=== PATIENT | male | born 1975 | race Native Hawaiian/Other Pacific Islander ===

== ENCOUNTER 2017-11-30 17:37 | Inpatient (IN) | payer MEDICAID, OTHER ==
[2017-11-30 17:44] VITALS: O2SAT 97
--- NOTE | 2017-11-30 17:47 | ED PDOC ---
Arrival/HPI - General Chief Complaint: Psychiatric Evaluation Time Seen by Provider: 11/30/17 17:44 Historian: Patient, Other (Transfer sheets) - History of Present Illness Associated Symptoms (Text): 11/30/17 17:45 Patient reports that his was cheating on him and he became depressed and told someone that he wanted to kill himself. He was seen at another hospital and medically cleared. Transfer arrangements were made for the psychiatric floor. Patient is awake alert cooperative and aware that he will be admitted to the psychiatric floor and he is agreeable. Therefore review of systems and full examination are unnecessary as he has already been medically cleared at another facility. Past Medical History - Cardiac Hx Hypertension: Yes - Pulmonary Hx Asthma: Yes - Endocrine/Metabolic Hx Diabetes Mellitus Type 2: Yes - Psychiatric Hx Depression: Yes Hx Substance Use: Yes (Marijuana) Family/Social History Family/Social History: Unknown Family HX Smoking Status: Never Smoked Hx Alcohol Use: No Hx Substance Use: Yes (Marijuana) Allergies/Home Meds Allergies/Adverse Reactions: Allergies No Known Allergies Allergy (Verified 11/30/17 17:44) Home Medications: Home Meds Medication Instructions Recorded Confirmed FLUoxetine [Prozac] 20 mg PO DAILY 11/30/17 11/30/17 RX: glyBURIDE [Micronase] 5 mg PO DAILY 11/30/17 11/30/17 RX: metFORMIN [glucOPHAGE] 500 mg PO BID 11/30/17 11/30/17 Physical Exam Vital Signs Temp Pulse Resp BP Pulse Ox 11/30/17 17:38 98.4 F 63 18 135/87 97 Temperature: Afebrile Blood Pressure: Normal Pulse: Regular Respiratory Rate: Normal Appearance: Positive for: Well-Appearing, Non-Toxic, Comfortable Pain Distress: None Mental Status: Positive for: Alert and Oriented X 3 Disposition/Present on Arrival - Present on Arrival Any Indicators Present on Arrival: No History of DVT/PE: No History of Uncontrolled Diabetes: No Urinary Catheter: No History of Decub. Ulcer: No History Surgical Site Infection Following: None - Disposition Have Diagnosis and Disposition been Completed?: Yes Diagnosis: Depression, Suicidal ideation Disposition: HOSPITALIZED Disposition Time: 17:46 Patient Plan: Admission Condition: GOOD Forms: Q-go (Persian)
[2017-11-30] MEDS ORDERED: Alum-Mag Hydrox-Simethicone Susp (30 mL) PO PRN (21:36)
[2017-11-30] MEDS ORDERED: Magnesium Hydroxide Susp 30 ml UD PO PRN (21:36)
--- NOTE | 2017-12-01 04:32 | PCM.BM ---
<Ken Abrams - Last Filed: 12/01/17 04:29> Treatment Plan Problems - Problems identified on initial assessmt Hopelessness Date Initiated: 11/30/17 Time Initiated: 22:45 Assessment reference: NA Status: Active Poor coping mechanism Date Initiated: 11/30/17 Time Initiated: 23:10 Assessment reference: NA Status: Active Anxiety Date Initiated: 11/30/17 Time Initiated: 22:45 Assessment reference: NA Status: Active Treatment assets and liabiliti Patient Assests: ADL independent, strong kari Patient Liabilities: financial problems, poor support system - Milieu Protocol Maintain good personal hygiene: daily Encourage regular showers, daily Remind patient to perform daily oral care, daily Assist patient to perform ADL's Maintain personal safety: daily Educate patient to report safety concerns to staff, daily Monitor environment for contraband/sharps Medication safety: Monitor for expected outcome, potential side effects: daily, Assess barriers to learning: daily, Assess readiness for medication education: daily Family Contact Family involvement: Patient does not wish Family/SO involvement - Goals for Treatment Patient goals for treatment: I just want to rest my head Discharge/Continuing Care - Education Needs Education Needs: Patient Medication, Patient Diagnosis/Disease Process, Patient Coping Skills - Discharge Discharge Criteria: Normal sleep pattern <Nita Sanchez - Last Filed: 12/01/17 10:52> - Diagnosis (1) Depression Status: Acute Interventions: 12/01/17 10:52 group, milieu and supportive tx * restart Prozac at 20 mg po daily, titrate as tolerated * Ativan 0.5 mg AMHS for anxiety * Sonata 10 mg HS prn: insomnia * Neurontin restarted at 800 mg HS ([facility] records indicate patient was being prescribed this medication) <Yissel Stevens - Last Filed: 12/02/17 16:01> Family Contact Family involvement: Famliy/SO not involved
[2017-12-01 08:40] LABS: HDL CHOLESTEROL 31 mg/dL (29-60)
[2017-12-01] MEDS: Oxymetazoline 0.05% Nasal Spray (30 ml) NS PRN ×2 (08:46→15:59)
[2017-12-01 08:51] LABS: LDL CHOLESTEROL 75 mg/dL (0-129)
[2017-12-01] MEDS: FLUoxetine Elix 20 MG/5 ML PO SCH (10:14)
--- NOTE | 2017-12-01 10:52 | PCM.PSYCH ---
Initial Psychiatric Evaluation - Initial Psychiatric Evaluation Type of Admission: Voluntary Legal Status: Capacity History of Present Illness and Precipitating Events: Patient is a 42 yo male with a history of depression and anxiety, no prior psychiatric admissions, no history of SA, compliant with Prozac prescribed by his primary care doctor who was transferred from [facility] at [place] after being sent to their ER by his primary care doctor for expressing suicidal thoughts during their appointment on 11/29/17. Patient has a long history of depression which has been treated mainly by his primary care physicians. He has been taking Prozac since 2011. This medication hasn't been as beneficial in recent months and these symptoms of depression worsened considerably after patient learned that his has been cheating on him for the past month. Patient found out about her affair approximately 1-2 weeks ago. During this time he tripled his dose of Prozac which also worsened his anxiety. Sleep has been very poor and patient admits to having thoughts of never waking up from sleep. He denies that he was ever actively suicidal. Patient has multiple stressors including financial, work and family. Learning about his 's affair was very painful for him and even more painful, she doesn't appear remorseful or want a reconciliation. Their future is still unclear and apparently his family do not know that patient is hospitalized. Psychiatric history No prior admissions. No history of SA. Patient has been prescribed Prozac since 2011 by primary care doctors, patient is unsure of his dose but tripled it in the week prior to admission in order to feel better (it didn't work). Prior to Prozac, patient was prescribed zoloft for many years. Social history Born and raised in [place]. x6 years. Resides with his , 14 yo daughter (from a previous relationship) and 25 yo stepson. Patient also has a 19 yo daughter who doesn't reside with him. 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 He denies any drug or alcohol issues but does smoke MJA multiple times a week (per [facility] report-patient denied any drug use during our interview). Patient denies tobacco use. Current Medications: Active Medications Generic Name Dose Route Start Last Admin Trade Name Freq PRN Reason Stop Dose Admin Acetaminophen 650 mg 11/30/17 21:36 Tylenol 325mg Tab PO Q6H PRN Pain, Mild (1-3) Al Hydrox/Mg Hydrox/Simethicone 30 ml 11/30/17 21:36 Maalox Plus 30 Ml PO DAILY PRN Dyspepsia Fluoxetine HCl 20 mg 12/01/17 08:00 Prozac PO DAILY CÉSAR Ibuprofen 800 mg 11/30/17 21:43 11/30/17 21:56 Motrin Tab PO 800 mg Q8 PRN Administration Pain, severe (8-10) Lorazepam 0.5 mg 11/30/17 22:00 11/30/17 21:56 Ativan PO 0.5 mg AMHS CÉSAR Administration Protocol Magnesium Hydroxide 30 ml 11/30/17 21:36 Milk Of Magnesia PO DAILY PRN Constipation Oxymetazoline HCl 0 ml 11/30/17 22:00 Afrin 0.05% NS Q12H PRN Nasal congestion Zaleplon 10 mg 11/30/17 21:37 11/30/17 21:56 Sonata PO 10 mg HS PRN Administration Insomnia Past Psychiatric History - Past Psychiatric History Pertinent Medical Hx (Current Medical&Sleep Prob, Allergies): Allergies Allergy/AdvReac Type Severity Reaction Status Date / Time No Known Allergies Allergy Verified 12/01/17 00:49 FLUoxetine [Prozac] 20 mg PO DAILY 11/30/17 glyBURIDE [Micronase] 5 mg PO DAILY 11/30/17 metFORMIN [glucOPHAGE] 500 mg PO BID 11/30/17 Mental Status Examination - Personal Presentation Personal Presentation: Looks stated age - Affect Affect: Constricted - Motor Activity Motor Activity: Calm - Reliability in Providing Information Reliability in Providing Information: Good - Speech Speech: Organized - Mood Mood: Depressed - Formal Thought Process Formal Thought Process: No Impairment - Obsessions/Compulsions Obsessions: No Compulsions: No - Cognitive Functions Orientation: Person, Place, Situation Sensorium: Alert Attention/Concentration: Attentive Estimate of Intelligence: Average Judgement: Intact, as evidence by: Good judgement Memory: Recent intact, as evidence by: Ability to recall events of the day - Risk Risk: Suicidal DSM 5 DX - DSM 5 DSM 5 Diagnosis: Major Depression, Severe Adjustment disorder with mixed depression and anxiety MJA Abuse - Recommended/Plan of Treatment Treatment Recommendations and Plan of Treatment: * group, milieu and supportive tx * Of note: patient doesn't want his family to know about his hospitalization at this time. * restart Prozac at 20 mg po daily, titrate as tolerated * Ativan 0.5 mg AMHS for anxiety * Sonata 10 mg HS prn: insomnia * Neurontin restarted at 800 mg HS ([facility] records indicate patient was being prescribed this medication) * Vitals reviewed and noted below: Selected Entries 12/01/17 07:27 Temperature 97.8 F Pulse Rate 53 L Respiratory 20 Rate Blood Pressure 122/80 * 11/29/17 [facility] labs summarized below: * WBC 12.5H, Hgb/Hct 12.9L/39.3L * Protein 9.3H, Globulin 5.8H * UDS is negative * CXR: no evidence of active chest disease * New floor labs noted below: Laboratory Results - last 24 hr 11/30/17 12/01/17 12/01/17 17:54 07:00 07:00 POC Glucose (mg/dL) 113 H Fasting Glucose 110 Triglycerides Cholesterol LDL Cholesterol Direct HDL Cholesterol TSH 3rd Generation 1.39 12/01/17 07:00 POC Glucose (mg/dL) Fasting Glucose Triglycerides 168 H Cholesterol 146 LDL Cholesterol Direct 75 HDL Cholesterol 31 TSH 3rd Generation - Smoking Cessation Smoking Cessation Initiated: No
[2017-12-01] MEDS ORDERED: Hydrocortisone 2.5% Rectal Cream(30 gm) PR PRN (10:55)
[2017-12-01 11:11] LABS: BLOOD UREA NITROGEN 7 mg/dL (7-21); CALCIUM 9.4 mg/dL (8.4-10.5); GFR NON-AFRICAN AMERICAN > 60
[2017-12-01 11:17] LABS: BASO # 0.01 K/mm3 (0.0-2.0); BASO % 0.1 % (0.0-3.0); EOS # 0.1 (0.0-0.7); EOS % 0.5 % (1.5-5.0); GRAN # 4.83 (1.4-6.5); GRAN % 49.7 % (50.0-68.0); HEMOGLOBIN 13.7 g/dL (14.0-18.0); LYMPH # 4.4 (1.2-3.4); LYMPH % 44.8 % (22.0-35.0); MEAN CELL VOLUME 83.4 fl (80.0-105.0); MEAN CORPUSCULAR HEMOGLOBIN 28.5 pg (25.0-35.0); MEAN CORPUSCULAR HGB CONC 34.2 g/dl (31.0-37.0); MEAN PLATELET VOLUME 10.2 fl (7.0-11.0); MONO # 0.5 (0.1-0.6); MONO % 4.9 % (1.0-6.0); RBC 4.81 10^6/uL (3.5-6.1); WHITE BLOOD COUNT 9.7 10^3/ul (4.5-11.0)
--- NOTE | 2017-12-01 16:03 | CP.PCM.CON ---
<Blas Wells - Last Filed: 12/01/17 15:51> History of Present Illness - History of Present Illness History of Present Illness: Blas Wells DO PGY1, History and Physical for Dr Danielson 42 yo male with a PMH DM2, cerebral aneurysm, HLD, GERD, hemorrhoids, anxiety and depression who was transferred from [facility] at [place] after being sent to their ER by his primary care doctor for expressing suicidal thoughts during their appointment on 11/29/17. Patient admits not to have SI/HI. No prior hospitalization due to depression or any psych illness. Patient states that he was only anxious when he told his doctor that he wish to be . Patient admits to palpitations and sleep disturbance due to anxiety and stress in his family life. He reports to having cerebral aneurysm but can not see neurosurgeon due to insurance is not accepted by doctors in [place]. Patient has fresh blood beeding and pain due to his hemorrhoids for which he takes prep-H. Has chronic neck pain due to arthritis. Patient denied CP, SOB, cough, change in bowel movement, MACEDO, dizziness, urinary symptoms PMH: chronic neck pain, DM2, gastritis, cerebral aneurysm, anxiety and depression, hemorrhoids PSH: none FH: Father had CVA, VT, alcohol abuse, SH: denies smoking. uses amrijuana use, socially drinks alcohol. Lives with and 2 stepsons Meds: fluoxetine 20, glyburide 5, metformin 500 bid, ibuprofen 800, gabapentin 800 tid, prevacid, anusol Allergies: NKDA Past Patient History - Past Social History Smoking Status: Never Smoked - CARDIAC Hx Hypertension: Yes - PULMONARY Hx Asthma: Yes - NEUROLOGICAL Hx Neurological Disorder: Yes Hx Migraine: Yes Other/Comment: Aneurysm H/O (Untreated) - HEENT Hx HEENT Problems: Yes Hx Sinusitis: Yes - ENDOCRINE/METABOLIC Hx Diabetes Mellitus Type 2: Yes - INTEGUMENTARY Hx Squamous Cell: No - MUSCULOSKELETAL/RHEUMATOLOGICAL Hx Back Pain: Yes - PSYCHIATRIC Hx Anxiety: Yes Hx Depression: Yes Hx Emotional Abuse: Yes Hx Substance Use: No Meds Allergies/Adverse Reactions: Allergies Allergy/AdvReac Type Severity Reaction Status Date / Time No Known Allergies Allergy Verified 12/01/17 00:49 - Medications Medications: Current Medications Acetaminophen (Tylenol 325mg Tab) 650 mg PO Q6H PRN PRN Reason: Pain, Mild (1-3) Al Hydrox/Mg Hydrox/Simethicone (Maalox Plus 30 Ml) 30 ml PO DAILY PRN PRN Reason: Dyspepsia Fluoxetine HCl (Prozac) 20 mg PO DAILY CÉSAR Last Admin: 12/01/17 10:14 Dose: 20 liq Gabapentin (Neurontin) 800 mg PO HS [facility]; Protocol Glyburide (Micronase) 5 mg PO 0800 CÉSAR Hydrocortisone (Anusol-Hc) 0 gm WI BID PRN PRN Reason: Hemorrhoids Ibuprofen (Motrin Tab) 600 mg PO Q8 PRN PRN Reason: Pain, severe (8-10) Lorazepam (Ativan) 0.5 mg PO AMHS [facility]; Protocol Last Admin: 12/01/17 10:14 Dose: 0.5 mg Magnesium Hydroxide (Milk Of Magnesia) 30 ml PO DAILY PRN PRN Reason: Constipation Metformin HCl (Glucophage) 500 mg PO BID CÉSAR Oxymetazoline HCl (Afrin 0.05%) 0 ml NS Q12H PRN PRN Reason: Nasal congestion Last Admin: 12/01/17 08:46 Dose: 2 spr Pantoprazole Sodium (Protonix Ec Tab) 20 mg PO 0600 CÉSAR Sodium Chloride (Gamerco Nasal [place]) 0 ml NS Q4H PRN PRN Reason: Nasal congestion Zaleplon (Sonata) 10 mg PO HS PRN PRN Reason: Insomnia Last Admin: 11/30/17 21:56 Dose: 10 mg Physical Exam - Constitutional Appears: Well, No Acute Distress - Head Exam Head Exam: ATRAUMATIC, NORMOCEPHALIC - Eye Exam Eye Exam: EOMI, Normal appearance Pupil Exam: NORMAL ACCOMODATION - ENT Exam ENT Exam: Mucous Membranes Moist, Normal Exam, Normal Oropharynx - Neck Exam Neck exam: Positive for: Full Rom, Normal Inspection - Respiratory Exam Respiratory Exam: Clear to Auscultation Bilateral, NORMAL BREATHING PATTERN. absent: Rales, Rhonchi, Wheezes - Cardiovascular Exam Cardiovascular Exam: REGULAR RHYTHM, +S1, +S2 - GI/Abdominal Exam GI & Abdominal Exam: Normal Bowel Sounds, Soft. absent: Tenderness - Back Exam Back exam: FULL ROM, NORMAL INSPECTION - Neurological Exam Neurological exam: Alert, CN II-XII Intact, Normal Gait, Oriented x3, Reflexes Normal - Psychiatric Exam Psychiatric exam: Anxious, Depressed - Skin Skin Exam: Dry, Intact, Normal Color, Warm Results - Vital Signs Recent Vital Signs: Last Vital Signs Temp 97.8 F 12/01/17 07:27 Pulse 53 L 12/01/17 07:27 Resp 20 12/01/17 07:27 BP 122/80 12/01/17 07:27 Pulse Ox 97 11/30/17 18:15 - Labs Result Diagrams: 12/01/17 11:00 12/01/17 11:00 Labs: Laboratory Results - last 24 hr 11/30/17 12/01/17 12/01/17 17:54 07:00 07:00 WBC RBC Hgb Hct MCV MCH MCHC RDW Plt Count MPV Gran % Lymph % (Auto) [place] % (Auto) Eos % (Auto) Baso % (Auto) Gran # Lymph # (Auto) [place] # (Auto) Eos # (Auto) Baso # (Auto) Sodium Potassium Chloride Carbon Dioxide Anion Gap BUN Creatinine Est GFR ( Amer) Est GFR (Non-Af Amer) POC Glucose (mg/dL) 113 H Random Glucose Fasting Glucose 110 Calcium Triglycerides Cholesterol LDL Cholesterol Direct HDL Cholesterol TSH 3rd Generation 1.39 12/01/17 12/01/17 12/01/17 07:00 11:00 11:00 WBC 9.7 RBC 4.81 Hgb 13.7 L Hct 40.1 L MCV 83.4 MCH 28.5 MCHC 34.2 RDW 15.0 H Plt Count 330 MPV 10.2 Gran % 49.7 L Lymph % (Auto) 44.8 H [place] % (Auto) 4.9 Eos % (Auto) 0.5 L Baso % (Auto) 0.1 Gran # 4.83 Lymph # (Auto) 4.4 H [place] # (Auto) 0.5 Eos # (Auto) 0.1 Baso # (Auto) 0.01 Sodium 139 Potassium 4.3 Chloride 104 Carbon Dioxide 24 Anion Gap 15 BUN 7 Creatinine 0.8 Est GFR ( Amer) > 60 Est GFR (Non-Af Amer) > 60 POC Glucose (mg/dL) Random Glucose 108 Fasting Glucose Calcium 9.4 Triglycerides 168 H Cholesterol 146 LDL Cholesterol Direct 75 HDL Cholesterol 31 TSH 3rd Generation Assessment & Plan - Assessment and Plan (Free Text) Assessment: 42 yo male with a PMH DM2, cerebral aneurysm, HLD, GERD, hemorrhoids, anxiety and depression who was transferred from [facility] after expressed thoughts of suicide at his PMD office. His is admitted to behavior unit, consulted for medical management Plan: DM2: continue home med metformin 500 bid continue home med glyperide 5 mg/day Hemorroids: started anusol GERD: started pantoprazole Chronic neck pain started lidoderm patch Anxiety/ depression as per psych management Case reviewed and plan discussed with Dr Danielson <Nina Danielson R - Last Filed: 12/03/17 18:48> Meds - Medications Medications: Current Medications Acetaminophen (Tylenol 325mg Tab) 650 mg PO Q6H PRN PRN Reason: Pain, Mild (1-3) Al Hydrox/Mg Hydrox/Simethicone (Maalox Plus 30 Ml) 30 ml PO DAILY PRN PRN Reason: Dyspepsia Cyclobenzaprine HCl (Flexeril) 5 mg PO TID CÉSAR Last Admin: 12/03/17 17:16 Dose: 5 mg Dextrose (Dextrose 50% Inj) 0 ml IV STAT PRN; Protocol PRN Reason: Hypoglycemia Protocol Gabapentin (Neurontin) 800 mg PO HS CÉSAR; Protocol Last Admin: 12/02/17 21:29 Dose: 800 mg Hydrocortisone (Anusol-Hc) 0 gm WI BID PRN PRN Reason: Hemorrhoids Dextrose (Dextrose 5% In Water 1000 Ml) 1,000 mls @ 0 mls/hr IV .Q0M PRN; Protocol PRN Reason: Hypoglycemia Protocol Insulin Human Regular (Humulin R Low) 0 units SC ACHS CÉSAR; Protocol Last Admin: 12/03/17 17:16 Dose: Not Given Lidocaine (Lidoderm) 1 ea TD DAILY CÉSAR Last Admin: 12/03/17 10:25 Dose: 1 ea Lorazepam (Ativan) 0.5 mg PO AMHS CÉSAR; Protocol Last Admin: 12/03/17 10:26 Dose: 0.5 mg Lorazepam (Ativan) 0.5 mg PO Q6H PRN; Protocol PRN Reason: Anxiety Magnesium Hydroxide (Milk Of Magnesia) 30 ml PO DAILY PRN PRN Reason: Constipation Oxymetazoline HCl (Afrin 0.05%) 0 ml NS Q12H PRN PRN Reason: Nasal congestion Last Admin: 12/03/17 10:34 Dose: 2 spr Pantoprazole Sodium (Protonix Ec Tab) 20 mg PO 0600 CÉSAR Last Admin: 10/02/18 06:53 Dose: 20 mg Sodium Chloride (Gamerco Nasal [place]) 0 ml NS Q4H PRN PRN Reason: Nasal congestion Venlafaxine HCl (Effexor) 75 mg PO DAILY CÉSAR Zaleplon (Sonata) 10 mg PO HS PRN PRN Reason: Insomnia Last Admin: 12/02/17 21:35 Dose: 10 mg Results - Vital Signs Recent Vital Signs: Last Vital Signs Temp 97.9 F 12/03/17 07:23 Pulse 59 L 12/03/17 16:30 Resp 18 12/03/17 07:23 BP 96/61 L 12/03/17 16:30 Pulse Ox 97 11/30/17 18:15 - Labs Result Diagrams: 12/03/17 10:45 12/03/17 10:45 Labs: Laboratory Results - last 24 hr 12/02/17 12/02/17 12/03/17 16:03 21:21 07:24 WBC RBC Hgb Hct MCV MCH MCHC RDW Plt Count MPV Gran % Lymph % (Auto) [place] % (Auto) Eos % (Auto) Baso % (Auto) Gran # Lymph # (Auto) [place] # (Auto) Eos # (Auto) Baso # (Auto) Sodium Potassium Chloride Carbon Dioxide Anion Gap BUN Creatinine Est GFR ( Amer) Est GFR (Non-Af Amer) POC Glucose (mg/dL) 61 L 97 86 Random Glucose Hemoglobin A1c Calcium Phosphorus Magnesium Total Bilirubin AST ALT Alkaline Phosphatase Total Protein Albumin Globulin Albumin/Globulin Ratio 12/03/17 12/03/17 12/03/17 10:45 10:45 10:45 WBC 12.2 H D RBC 4.86 Hgb 13.7 L Hct 40.4 L MCV 83.1 MCH 28.2 MCHC 33.9 RDW 15.1 H Plt Count 321 MPV 9.4 Gran % 56.2 Lymph % (Auto) 36.1 H [place] % (Auto) 7.3 H Eos % (Auto) 0.3 L Baso % (Auto) 0.1 Gran # 6.83 H Lymph # (Auto) 4.4 H [place] # (Auto) 0.9 H Eos # (Auto) 0.0 Baso # (Auto) 0.01 Sodium 140 Potassium 4.0 Chloride 104 Carbon Dioxide 22 Anion Gap 18 BUN 11 Creatinine 0.9 Est GFR ( Amer) > 60 Est GFR (Non-Af Amer) > 60 POC Glucose (mg/dL) Random Glucose 113 H Hemoglobin A1c 6.2 Calcium 9.9 Phosphorus 3.4 Magnesium 1.7 Total Bilirubin 0.4 AST 32 ALT 45 Alkaline Phosphatase 80 Total Protein 9.5 H Albumin 4.6 Globulin 4.9 Albumin/Globulin Ratio 0.9 L 12/03/17 11:57 WBC RBC Hgb Hct MCV MCH MCHC RDW Plt Count MPV Gran % Lymph % (Auto) [place] % (Auto) Eos % (Auto) Baso % (Auto) Gran # Lymph # (Auto) [place] # (Auto) Eos # (Auto) Baso # (Auto) Sodium Potassium Chloride Carbon Dioxide Anion Gap BUN Creatinine Est GFR ( Amer) Est GFR (Non-Af Amer) POC Glucose (mg/dL) 112 H Random Glucose Hemoglobin A1c Calcium Phosphorus Magnesium Total Bilirubin AST ALT Alkaline Phosphatase Total Protein Albumin Globulin Albumin/Globulin Ratio Attending/Attestation - Attestation I have personally seen and examined this patient.: Yes I have fully participated in the care of the patient.: Yes I have reviewed all pertinent clinical information: Yes Notes (Text): Patient seen and examined by me at 11:10AM with resident 12/01/17. Case including HPI, physical exam, andassessment and plan discussed with resident. Agree with above with following additions/corrections. Patient is 42 year old male with past medical history significant for cerebral aneurysm per patient, hyperlipidemia, GERD, DM2, hemorrhoids, and anxiety and depression who was admitted to the psychiatric unit for suicidal ideations. We are consulted for medical management. Patient states he is feeling ok. States he is having neck pain which is chronic. States he has a history of cerebral aneurysm as well. He states was seeing a neurologist who told him he was a liability and he has not followed with anyone else. He states no one takes his insurance. He states he has tried lidocaine patches for his neck in the past which did help. He states his insurance company does not cover this medication. He denies any chest pain or shortness of breath. No nausea, vomiting, or abdominal pain. No headaches or dizziness. No palpitations. No fevers or chills. No dysuria. No diarrhea or constipation. 12 point review of systems reviewed by me. See above HPI, all other systems are negative. Physical exam: General: Awake and alert sitting up in bed in no acute distress HEENT: Normocephalic atraumatic. Pupils equal reactive. No scleral icterus. Oropharynx is pink and moist. No pharyngeal erythema or exudate appreciated. Neck is supple. Hearing grossly intact. Ears and nose externally unremarkable. Cardiovascular: Normal rhythm. Normal S1, S2. No murmurs, rubs, or gallops appreciated Pulmonary: Normal respiratory effort. No rhonchi, rales, or wheezing appreciated Gastrointestinal: Soft. Nondistended. Nontender. Positive bowel sounds all 4 quadrants, no guarding. Musculoskeletal: Normal range of motion all extremities. No calf tenderness. No edema appreciated. No CVA tenderness. Positive cervical paraspinal muscle tenderness. Central nervous system: AAO 3. Cranial nerves 2-12 grossly intact Dermatologic: Skin warm and dry. Assessment and plan: Patient is 42 year old male with past medical history significant for cerebral aneurysm per patient, hyperlipidemia, GERD, DM2, hemorrhoids, and anxiety and depression who was admitted to the psychiatric unit for suicidal ideations. We are consulted for medical management. 1. DM2. Continue home metformin and glyburide. Monitor accuchecks 2. History of hemorrhoids. Placed on anusol as needed. 3. Hyperlipidemia. Patient is unsure of which medication he takes at home. Will need to check with patients pharmacy. 4. GERD. Placed on Protonix 5. Chronic neck pain. Started on lidocaine patch. Patient advised on follow up with primary care doctor and neurologist for further care 6. ?Cerebral aneurysm. Patient asymptomatic. Patient will need follow up with his primary care doctor and neurologist. This was discussed at length with patient. 7. Anxiety and depression. Care as per primary team. Thank you for allowing us to participate in the care of your patient.
--- NOTE | 2017-12-01 17:11 | CP.PCM.PCO ---
Addendum Addendum: 12/01/17 17:08 In regards to the Lidocaine Transdermal Patch: Please place on patient for 12 hours and then remove the patch after this 12 hour period is complete. Please do not leave the Lidocaine patch on the patient for greater than 12 hours at a time. Please also note that there should be at least 12 hours between patches being placed on the patient. Thank you.
[2017-12-02] MEDS: Pantoprazole 20 mg EC Tab PO SCH (07:22)
[2017-12-02] MEDS: Lidocaine 5% Patch TD SCH (09:34)
[2017-12-02] MEDS: FLUoxetine Elix 20 MG/5 ML PO SCH (09:52)
[2017-12-02] MEDS ORDERED: Dextrose 50% SYRINGE Inj (50 ml) IV PRN (15:51)
[2017-12-02] MEDS ORDERED: Insulin Lispro (humaLOG) LOW Coverage SC SCH (16:30)
--- NOTE | 2017-12-02 16:42 | PCM.PYCHPN ---
Psychiatric Progress Note - Psychiatric Progress Note Patient seen today, length of contact: 30 minutes Patient Chief Complaint: "all of my previous wives cheated on me" Problems Identified/Issues Discussed: Suicide/ homicide prevention, past psychiatric h/o, current psychiatric symptoms, medical problems, risk/benefits and alternatives of medications, medications compliance, coping strategies, substance abuse h/o, relapse prevention, importance of follow up with psychiatrist and therapist, discharge plan. Medical Problems: diabetes mellitus type 2, cerebral aneurysm, hyperlipidemia, GERD, hemorrhoids, see admission note for more detailed information Diagnostic Results: 12/01/17 11:00 12/01/17 11:00 Lab Results 12/02/17 14:40: POC Glucose (mg/dL) 73 12/02/17 12:29: POC Glucose (mg/dL) 68 12/02/17 11:46: POC Glucose (mg/dL) 34 L* 12/02/17 07:35: POC Glucose (mg/dL) 108 12/01/17 21:33: POC Glucose (mg/dL) 128 H 12/01/17 16:21: POC Glucose (mg/dL) 88 12/01/17 11:38: POC Glucose (mg/dL) 105 12/01/17 11:00: Sodium 139, Potassium 4.3, Chloride 104, Carbon Dioxide 24, Anion Gap 15, BUN 7, Creatinine 0.8, Est GFR ( Amer) > 60, Est GFR (Non- Af Amer) > 60, Random Glucose 108, Calcium 9.4 12/01/17 11:00: WBC 9.7, RBC 4.81, Hgb 13.7 L, Hct 40.1 L, MCV 83.4, MCH 28.5, MCHC 34.2, RDW 15.0 H, Plt Count 330, MPV 10.2, Gran % 49.7 L, Lymph % (Auto) 44.8 H, [place] % (Auto) 4.9, Eos % (Auto) 0.5 L, Baso % (Auto) 0.1, Gran # 4.83, Lymph # (Auto) 4.4 H, [place] # (Auto) 0.5, Eos # (Auto) 0.1, Baso # (Auto) 0.01 12/01/17 07:00: Triglycerides 168 H, Cholesterol 146, LDL Cholesterol Direct 75, HDL Cholesterol 31 12/01/17 07:00: TSH 3rd Generation 1.39 12/01/17 07:00: Fasting Glucose 110 12/01/17 07:00: RPR Nonreactive 11/30/17 17:54: POC Glucose (mg/dL) 113 H Vital Signs Temp Pulse Resp BP Pulse Ox 12/02/17 15:49 86 133/88 12/02/17 07:00 97.8 F 62 20 96/62 L 12/02/17 06:50 97.8 F 62 20 96/62 L 12/01/17 16:30 59 L 101/61 12/01/17 07:27 97.8 F 53 L 20 122/80 11/30/17 23:06 19 11/30/17 18:15 98.4 F 63 18 135/87 97 11/30/17 17:38 98.4 F 63 18 135/87 97 11/30/17 17:37 98.4 F 63 18 135/87 97 DSM 5 Symptoms Update: as per Dr. Sanchez's assessment: Patient is a 42 yo male with a history of depression and anxiety, no prior psychiatric admissions, no history of SA, compliant with Prozac prescribed by his primary care doctor who was transferred from [facility] at [place] after being sent to their ER by his primary care doctor for expressing suicidal thoughts during their appointment on 11/29/17. Patient has a long history of depression which has been treated mainly by his primary care physicians. He has been taking Prozac since 2011. This medication hasn't been as beneficial in recent months and these symptoms of depression worsened considerably after patient learned that his has been cheating on him for the past month. Patient found out about her affair approximately 1-2 weeks ago. During this time he tripled his dose of Prozac which also worsened his anxiety. Sleep has been very poor and patient admits to having thoughts of never waking up from sleep. He denies that he was ever actively suicidal. Patient has multiple stressors including financial, work and family. Learning about his 's affair was very painful for him and even more painful, she doesn't appear remorseful or want a reconciliation. Their future is still unclear and apparently his family do not know that patient is hospitalized. Patient was seen at the treatment team meeting, patient presented with acceptable personal hygiene, thought process seems to be circumstantial and overinclusive, pt reported to feel very depressed and "heart broken",pt reported meds help him to sleep. pt started to go to the groups, visible in the unit. pt gave permission to speak to his , as per pt he is opened for family counseling, but doubtful about his willingness to have family therapy. pt was offered to change prozac to Effexor, risk/benefits and alternatives discussed with pt. pt willing to continue the rest of meds. patient was seen by medical team, consult appreciated. Patient denied hearing voices, denied seeing things, denied paranoid ideation, patient does not present to be psychotic. Impression: rule out major depressive disorder Rule out adjustment disorder with depressed and anxious mood Medication Change: Yes (Prozac discontinued, Effexor started) Medical Record Reviewed: Yes Consults ordered or reviewed: atient was seen by medical team, consult appreciated. Mental Status Examination - Cognitive Function Orientation: Person, Place, Situation Memory: Intact Attention: Poor Concentration: Poor Association: WNL Fund of Knowledge: WNL - Mood Mood: Depressed - Affect Affect: Constricted - Formal Thought Process Formal Thought Process: No Impairment - Suicidal Ideation Suicidal Ideation: No - Homicidal Ideation Homicidal Ideation: No Goal/Treatment Plan - Goal/Treatment Plan Need for Continued Stay: Remain at risks for inpatient hospitalization, Severe depression anxiety, Discharge may exacerbated symptoms, Severe functional impairment Progress Toward Problem(s) and Goals/Treatment Plan: Milieu/structure/supportive therapy Medical consult appreciated, see medical team note for more detailed info SW consultation for discharge plan and social issues Med management Prozac was discontinued Effexor started 37.5 mg by mouth daily for depression and anxiety Sonata for insomnia Flexeril was started by medical team [facility] Family involvement Follow up on labs Will monitor closely Pt was educated about risk/benefits and alternatives of medications, coping strategies (safety plan, suicide prevention), relapse prevention, importance of follow up with psychiatrist and therapist, stay away from drugs/alcohol/smoking Estimated Date of D/C: 12/09/17
--- NOTE | 2017-12-02 17:02 | CP.PCM.CON ---
<Nikki Chance - Last Filed: 12/02/17 16:55> History of Present Illness - History of Present Illness History of Present Illness: Nikki Chance, PGY2, Neurology Note for Dr Ortiz: 42 M with PMH DM2, cerebral aneurysm, HLD, GERD, hemorrhoids, anxiety and depression was sent to ER by primary care doctor for suicidal thoughts on Wednesday 11/29 and was admitted to psych for depression and anxiety. Currently denies suicidal ideations, says it was a passive intent after learning his had been cheating on him for past month, but feeling better about the situation today. Admits to chronic headaches and neck pain for past 25 years that radiates to occiput, rates pain as 11/11, smokes marijuana daily for pain. Also prescribed Gabapentin 800mg TID in the past by his neurologist, who he last saw 2 years ago. He states he took the Neurontin sporadically and therefore still had medication that he has been taking at night to help him sleep (800mg HS) along with Unisom. R cerebral aneurysm (2cm) was diagnosed in 2001, last imaging done a few years ago at [facility] in [place] (measured 3cm). He has not had any imaging or follow-up since then due to insurance issues. Also admits to occasio nal dizziness and balance issues, including falls, has hit his head. Denies focal weakness, tremors, nausea/vomiting. 12 point ROS obtained and negative, except as per HPI. PMD: Mike ([place]) Social: Marijuana use daily. Occasional alcohol. Denies tobacco, drug use. Works in [employer]. 2 daughters (19yo, 14yo). PMH: chronic neck pain, DM2, gastritis, cerebral aneurysm, anxiety and depre ssion, hemorrhoids PSH: none FH: Father had CVA, [place], alcohol abuse, SH: denies smoking. uses marijuana use, socially drinks alcohol. Lives with and 2 stepsons Meds: fluoxetine 20, glyburide 5, metformin 500 bid, ibuprofen 800, gabapentin 800 tid, prevacid, anusol Allergies: NKDA Review of Systems - Review of Systems All systems: reviewed and no additional remarkable complaints except Review of Systems: as per HPI Past Patient History - Past Social History Smoking Status: Never Smoked - CARDIAC Hx Hypertension: Yes - PULMONARY Hx Asthma: Yes - NEUROLOGICAL Hx Neurological Disorder: Yes Hx Migraine: Yes Other/Comment: Aneurysm H/O (Untreated) - HEENT Hx HEENT Problems: Yes Hx Sinusitis: Yes - ENDOCRINE/METABOLIC Hx Diabetes Mellitus Type 2: Yes - INTEGUMENTARY Hx Squamous Cell: No - MUSCULOSKELETAL/RHEUMATOLOGICAL Hx Back Pain: Yes - PSYCHIATRIC Hx Anxiety: Yes Hx Depression: Yes Hx Emotional Abuse: Yes Hx Substance Use: No Meds Allergies/Adverse Reactions: Allergies Allergy/AdvReac Type Severity Reaction Status Date / Time No Known Allergies Allergy Verified 12/01/17 00:49 - Medications Medications: Current Medications Acetaminophen (Tylenol 325mg Tab) 650 mg PO Q6H PRN PRN Reason: Pain, Mild (1-3) Al Hydrox/Mg Hydrox/Simethicone (Maalox Plus 30 Ml) 30 ml PO DAILY PRN PRN Reason: Dyspepsia Cyclobenzaprine HCl (Flexeril) 5 mg PO TID CÉSAR Dextrose (Dextrose 50% Inj) 0 ml IV STAT PRN; Protocol PRN Reason: Hypoglycemia Protocol Gabapentin (Neurontin) 800 mg PO HS CÉSAR; Protocol Last Admin: 12/01/17 21:26 Dose: 800 mg Hydrocortisone (Anusol-Hc) 0 gm [place] BID PRN PRN Reason: Hemorrhoids Dextrose (Dextrose 5% In Water 1000 Ml) 1,000 mls @ 0 mls/hr IV .Q0M PRN; Protocol PRN Reason: Hypoglycemia Protocol Ibuprofen (Motrin Tab) 800 mg PO Q8 PRN PRN Reason: Pain, severe (8-10) Insulin Human Lispro (Humalog Low) 0 units SC ACHS CÉSAR; Protocol Lidocaine (Lidoderm) 1 ea TD DAILY CÉSAR Last Admin: 12/02/17 09:34 Dose: 1 ea Lorazepam (Ativan) 0.5 mg PO AMHS CÉSAR; Protocol Last Admin: 12/02/17 09:35 Dose: 0.5 mg Lorazepam (Ativan) 0.5 mg PO Q6H PRN; Protocol PRN Reason: Anxiety Magnesium Hydroxide (Milk Of Magnesia) 30 ml PO DAILY PRN PRN Reason: Constipation Metformin HCl (Glucophage) 500 mg PO BID CÉSAR Last Admin: 12/02/17 09:34 Dose: 500 mg Oxymetazoline HCl (Afrin 0.05%) 0 ml NS Q12H PRN PRN Reason: Nasal congestion Last Admin: 12/01/17 15:59 Dose: 2 spr Pantoprazole Sodium (Protonix Ec Tab) 20 mg PO 0600 CÉSAR Last Admin: 12/02/17 07:22 Dose: 20 mg Sodium Chloride ([place] Nasal [place]) 0 ml NS Q4H PRN PRN Reason: Nasal congestion Venlafaxine HCl (Effexor) 37.5 mg PO DAILY CÉSAR Last Admin: 12/02/17 09:48 Dose: 37.5 mg Zaleplon (Sonata) 10 mg PO HS PRN PRN Reason: Insomnia Last Admin: 12/01/17 21:26 Dose: 10 mg Physical Exam - Constitutional Appears: Non-toxic, No Acute Distress - Head Exam Head Exam: ATRAUMATIC, NORMOCEPHALIC - Eye Exam Eye Exam: EOMI, PERRL. absent: Conjunctival injection, Nystagmus, Scleral icterus Pupil Exam: NORMAL ACCOMODATION, PERRL. absent: Fixed, Irregular, Miosis, Unequal - ENT Exam ENT Exam: Mucous Membranes Moist - Neck Exam Neck exam: Positive for: Full Rom - Respiratory Exam Respiratory Exam: Clear to Auscultation Bilateral, NORMAL BREATHING PATTERN. absent: Accessory Muscle Use, Rales, Rhonchi, Wheezes, Stridor - Cardiovascular Exam Cardiovascular Exam: +S1, +S2. absent: Systolic Murmur - GI/Abdominal Exam GI & Abdominal Exam: Normal Bowel Sounds, Soft. absent: Firm, Guarding, Organomegaly, Rebound, Rigid, Tenderness - Extremities Exam Extremities exam: Positive for: normal inspection. Negative for: calf tenderness, pedal edema - Back Exam Back exam: NORMAL INSPECTION - Neurological Exam Neurological exam: Alert, CN II-XII Intact, Normal Gait, Oriented x3, Reflexes Normal Additional comments: 5/5 muscle strength bilaterally in UE & LE Sensation intact bilaterally No dysmetria. Rapid alternating movements normal +Swaying with eyes closed (positive Romberg) +Steady gait, mildly off-balance - Psychiatric Exam Psychiatric exam: Normal Affect, Normal Mood - Skin Skin Exam: Dry, Normal Color, Warm Results - Vital Signs Recent Vital Signs: Last Vital Signs Temp 97.8 F 12/02/17 07:00 Pulse 86 12/02/17 15:49 Resp 20 12/02/17 07:00 BP 133/88 12/02/17 15:49 Pulse Ox 97 11/30/17 18:15 - Labs Result Diagrams: 12/01/17 11:00 12/01/17 11:00 Labs: Laboratory Results - last 24 hr 12/01/17 12/02/17 12/02/17 21:33 07:35 11:46 POC Glucose (mg/dL) 128 H 108 34 L* 12/02/17 12/02/17 12:29 14:40 POC Glucose (mg/dL) 68 73 Assessment & Plan - Assessment and Plan (Free Text) Assessment: 42 M with PMH of DM2, cerebral aneurysm, HLD, GERD, hemorrhoids, anxiety and depression admitted to psych for depression and anxiety. neurology consulted for history of cerebral aneurysm, chronic headaches and neck pain: Chronic headache and neck pain: - start Flexeril 5 mg PO tid - continue Gabapentin 800mg HS - Lidoderm patch - PT eval Hx of Cerebral Aneurysm: - head MRA - cervical MRI - F/u results Case discussed with Dr Ortiz. <Clay Ortiz - Last Filed: 12/03/17 12:26> Meds - Medications Medications: Current Medications Acetaminophen (Tylenol 325mg Tab) 650 mg PO Q6H PRN PRN Reason: Pain, Mild (1-3) Al Hydrox/Mg Hydrox/Simethicone (Maalox Plus 30 Ml) 30 ml PO DAILY PRN PRN Reason: Dyspepsia Cyclobenzaprine HCl (Flexeril) 5 mg PO TID [facility] Last Admin: 12/03/17 10:26 Dose: 5 mg Dextrose (Dextrose 50% Inj) 0 ml IV STAT PRN; Protocol PRN Reason: Hypoglycemia Protocol Gabapentin (Neurontin) 800 mg PO [facility]; Protocol Last Admin: 12/02/17 21:29 Dose: 800 mg Hydrocortisone (Anusol-Hc) 0 gm [place] BID PRN PRN Reason: Hemorrhoids Dextrose (Dextrose 5% In Water 1000 Ml) 1,000 mls @ 0 mls/hr IV .Q0M PRN; Pro tocol PRN Reason: Hypoglycemia Protocol Ibuprofen (Motrin Tab) 800 mg PO Q8 PRN PRN Reason: Pain, severe (8-10) Last Admin: 12/02/17 21:40 Dose: 800 mg Insulin Human Regular (Humulin R Low) 0 units SC [facility]; Protocol Last Admin: 12/03/17 12:21 Dose: Not Given Lidocaine (Lidoderm) 1 ea TD DAILY CÉSAR Last Admin: 12/03/17 10:25 Dose: 1 ea Lorazepam (Ativan) 0.5 mg PO AMHS CÉSAR; Protocol Last Admin: 12/03/17 10:26 Dose: 0.5 mg Lorazepam (Ativan) 0.5 mg PO Q6H PRN; Protocol PRN Reason: Anxiety Magnesium Hydroxide (Milk Of Magnesia) 30 ml PO DAILY PRN PRN Reason: Constipation Oxymetazoline HCl (Afrin 0.05%) 0 ml NS Q12H PRN PRN Reason: Nasal congestion Last Admin: 12/03/17 10:34 Dose: 2 spr Pantoprazole Sodium (Protonix Ec Tab) 20 mg PO 0600 CÉSAR Last Admin: 12/03/17 06:53 Dose: 20 mg Sodium Chloride ([place] Nasal [place]) 0 ml NS Q4H PRN PRN Reason: Nasal congestion Venlafaxine HCl (Effexor) 37.5 mg PO DAILY CÉSAR Last Admin: 12/03/17 10:26 Dose: 37.5 mg Zaleplon (Sonata) 10 mg PO HS PRN PRN Reason: Insomnia Last Admin: 12/02/17 21:35 Dose: 10 mg Results - Vital Signs Recent Vital Signs: Last Vital Signs Temp 97.9 F 12/03/17 07:23 Pulse 67 12/03/17 07:23 Resp 18 12/03/17 07:23 BP 100/63 12/03/17 07:23 Pulse Ox 97 11/30/17 18:15 - Labs Result Diagrams: 12/03/17 10:45 12/03/17 10:45 Labs: Laboratory Results - last 24 hr 12/02/17 12/02/17 12/02/17 12:29 14:40 16:03 WBC RBC Hgb Hct MCV MCH MCHC RDW Plt Count MPV Gran % Lymph % (Auto) [place] % (Auto) Eos % (Auto) Baso % (Auto) Gran # Lymph # (Auto) [place] # (Auto) Eos # (Auto) Baso # (Auto) Sodium Potassium Chloride Carbon Dioxide Anion Gap BUN Creatinine Est GFR ( Amer) Est GFR (Non-Af Amer) POC Glucose (mg/dL) 68 73 61 L Random Glucose Calcium Phosphorus Magnesium Total Bilirubin AST ALT Alkaline Phosphatase Total Protein Albumin Globulin Albumin/Globulin Ratio 12/02/17 12/03/17 12/03/17 21:21 07:24 10:45 WBC 12.2 H D RBC 4.86 Hgb 13.7 L Hct 40.4 L MCV 83.1 MCH 28.2 MCHC 33.9 RDW 15.1 H Plt Count 321 MPV 9.4 Gran % 56.2 Lymph % (Auto) 36.1 H [place] % (Auto) 7.3 H Eos % (Auto) 0.3 L Baso % (Auto) 0.1 Gran # 6.83 H Lymph # (Auto) 4.4 H [place] # (Auto) 0.9 H Eos # (Auto) 0.0 Baso # (Auto) 0.01 Sodium Potassium Chloride Carbon Dioxide Anion Gap BUN Creatinine Est GFR ( Amer) Est GFR (Non-Af Amer) POC Glucose (mg/dL) 97 86 Random Glucose Calcium Phosphorus Magnesium Total Bilirubin AST ALT Alkaline Phosphatase Total Protein Albumin Globulin Albumin/Globulin Ratio 12/03/17 12/03/17 10:45 11:57 WBC RBC Hgb Hct MCV MCH MCHC RDW Plt Count MPV Gran % Lymph % (Auto) [place] % (Auto) Eos % (Auto) Baso % (Auto) Gran # Lymph # (Auto) [place] # (Auto) Eos # (Auto) Baso # (Auto) Sodium 140 Potassium 4.0 Chloride 104 Carbon Dioxide 22 Anion Gap 18 BUN 11 Creatinine 0.9 Est GFR ( Amer) > 60 Est GFR (Non-Af Amer) > 60 POC Glucose (mg/dL) 112 H Random Glucose 113 H Calcium 9.9 Phosphorus 3.4 Magnesium 1.7 Total Bilirubin 0.4 AST 32 ALT 45 Alkaline Phosphatase 80 Total Protein 9.5 H Albumin 4.6 Globulin 4.9 Albumin/Globulin Ratio 0.9 L Assessment & Plan - Assessment and Plan (Free Text) Assessment: All medical record entries made by the resident were at my direction and personally dictated by me. I have reviewed the chart and agree that the record accurately reflects my personal performance of the history, physical exam, medical decision making, and the department course for this patient. I have also personally directed, reviewed, and agree with the discharge instructions and disposition.
[2017-12-02] MEDS: Insulin Reg-LOW-Coverage SC SCH (21:28)
[2017-12-03] MEDS: Pantoprazole 20 mg EC Tab PO SCH (06:53)
--- NOTE | 2017-12-03 07:19 | CP.PCM.PN ---
<Blas Wells - Last Filed: 12/03/17 16:12> Subjective - Date & Time of Evaluation Date of Evaluation: 12/03/17 Time of Evaluation: 07:18 - Subjective Subjective: Blas Wells DO PGY-1, Internal Medicine Resident. Hospitalist Progress Note Patient seen and examined at bedside. Patient is resting in bed, awake and oriented. He did not have any complaints. Yesterday his BG was 34 on fingerstick when he felt weakness and diaphoresis and dizziness. Patient stated that he have has hypoglycemic episodes since childhood. Patient denied palpitations, CP, N/V/D Objective - Vital Signs/Intake and Output Vital Signs (last 24 hours): Temp Pulse Resp BP Pulse Ox 97.8 F 86 20 133/88 97 12/02/17 07:00 12/02/17 15:49 12/02/17 07:00 12/02/17 15:49 11/30/17 18:15 - Medications Medications: Current Medications Acetaminophen (Tylenol 325mg Tab) 650 mg PO Q6H PRN PRN Reason: Pain, Mild (1-3) Al Hydrox/Mg Hydrox/Simethicone (Maalox Plus 30 Ml) 30 ml PO DAILY PRN PRN Reason: Dyspepsia Cyclobenzaprine HCl (Flexeril) 5 mg PO TID [facility] Last Admin: 12/02/17 17:14 Dose: 5 mg Dextrose (Dextrose 50% Inj) 0 ml IV STAT PRN; Protocol PRN Reason: Hypoglycemia Protocol Gabapentin (Neurontin) 800 mg PO HS [facility]; Protocol Last Admin: 12/02/17 21:29 Dose: 800 mg Hydrocortisone (Anusol-Hc) 0 gm ID BID PRN PRN Reason: Hemorrhoids Dextrose (Dextrose 5% In Water 1000 Ml) 1,000 mls @ 0 mls/hr IV .Q0M PRN; Protocol PRN Reason: Hypoglycemia Protocol Ibuprofen (Motrin Tab) 800 mg PO Q8 PRN PRN Reason: Pain, severe (8-10) Last Admin: 12/02/17 21:40 Dose: 800 mg Insulin Human Regular (Humulin R Low) 0 units SC ACHS CÉSAR; Protocol Last Admin: 12/02/17 21:28 Dose: Not Given Lidocaine (Lidoderm) 1 ea TD DAILY [facility]AR Last Admin: 12/02/17 09:34 Dose: 1 ea Lorazepam (Ativan) 0.5 mg PO AMHS CÉSAR; Protocol Last Admin: 12/02/17 21:29 Dose: 0.5 mg Lorazepam (Ativan) 0.5 mg PO Q6H PRN; Protocol PRN Reason: Anxiety Magnesium Hydroxide (Milk Of Magnesia) 30 ml PO DAILY PRN PRN Reason: Constipation Oxymetazoline HCl (Afrin 0.05%) 0 ml NS Q12H PRN PRN Reason: Nasal congestion Last Admin: 12/01/17 15:59 Dose: 2 spr Pantoprazole Sodium (Protonix Ec Tab) 20 mg PO 0600 [facility] Last Admin: 12/03/17 06:53 Dose: 20 mg Sodium Chloride ([place] Nasal [place]) 0 ml NS Q4H PRN PRN Reason: Nasal congestion Venlafaxine HCl (Effexor) 37.5 mg PO DAILY [facility]AR Last Admin: 12/02/17 09:48 Dose: 37.5 mg Zaleplon (Sonata) 10 mg PO HS PRN PRN Reason: Insomnia Last Admin: 12/02/17 21:35 Dose: 10 mg - Labs Labs: 12/01/17 11:00 12/01/17 11:00 - Constitutional Appears: Well, No Acute Distress - Head Exam Head Exam: ATRAUMATIC, NORMAL INSPECTION, NORMOCEPHALIC - Eye Exam Eye Exam: Normal appearance, PERRL Pupil Exam: NORMAL ACCOMODATION - ENT Exam ENT Exam: Mucous Membranes Moist, Normal Exam - Neck Exam Neck Exam: Normal Inspection Additional comments: paravertebral neck muscle tenderness to palpate - Respiratory Exam Respiratory Exam: Clear to Ausculation Bilateral, NORMAL BREATHING PATTERN - Cardiovascular Exam Cardiovascular Exam: REGULAR RHYTHM, +S1, +S2. absent: Murmur - GI/Abdominal Exam GI & Abdominal Exam: Soft, Normal Bowel Sounds. absent: Tenderness - Extremities Exam Extremities Exam: Full ROM, Normal Capillary Refill, Normal Inspection. absent: Joint Swelling, Pedal Edema - Back Exam Back Exam: NORMAL INSPECTION - Neurological Exam Neurological Exam: Alert, Awake, CN II-XII Intact, Normal Gait, Oriented x3 - Psychiatric Exam Psychiatric exam: Depressed - Skin Skin Exam: Dry, Intact, Normal Color, Warm Assessment and Plan - Assessment and Plan (Free Text) Assessment: 42 yo male with a PMH DM2, cerebral aneurysm, HLD, GERD, hemorrhoids, anxiety and depression who was transferred from [facility] after expressed thoughts of suicide at his PMD office. His is admitted to behavior unit, consulted for medical management. Patient had hypoglycemic episode with BG 34 Plan: DM2: discontinue home med metformin, glyperide patient developed one episode of hypoglycemia, BG 34. now he is clinically stable A1C 6.2 ISS-low accuchecks H/O cerebral aneurysm As per neuro consult: head MRI, cervical MRI ordered Hemorroids: started anusol GERD: started pantoprazole d/c ibuprofen. use tylenol instead Chronic neck pain started lidoderm patch continue flexeril, gabapentin worm compressions as needed avoid ibuprofen PT: not candidate for skilled rehab. d/c home with outpatient PT Anxiety/ depression as per psych management regular diet Case reviewed and plan discussed with Dr Ennis <Chuckie Ennis - Last Filed: 12/05/17 13:31> Objective - Vital Signs/Intake and Output Vital Signs (last 24 hours): Temp Pulse Resp BP Pulse Ox 97.7 F 53 L 20 117/54 L 97 12/05/17 07:20 12/05/17 07:20 12/05/17 07:20 12/05/17 07:20 11/30/17 18:15 - Medications Medications: Current Medications Acetaminophen (Tylenol 325mg Tab) 650 mg PO Q6H PRN PRN Reason: Pain, Mild (1-3) Last Admin: 12/05/17 09:09 Dose: 650 mg Al Hydrox/Mg Hydrox/Simethicone (Maalox Plus 30 Ml) 30 ml PO DAILY PRN PRN Reason: Dyspepsia Cyclobenzaprine HCl (Flexeril) 5 mg PO TID [facility] Last Admin: 12/05/17 12:59 Dose: 5 mg Dextrose (Dextrose 50% Inj) 0 ml IV STAT PRN; Protocol PRN Reason: Hypoglycemia Protocol Docusate Sodium (Colace) 100 mg PO BID [facility] Last Admin: 12/05/17 09:07 Dose: 100 mg Gabapentin (Neurontin) 1,200 mg PO HS CÉ[facility]AR; Protocol Last Admin: 12/04/17 21:35 Dose: 1,200 mg Hydrocortisone (Anusol-Hc) 0 gm ID BID PRN PRN Reason: Hemorrhoids Dextrose (Dextrose 5% In Water 1000 Ml) 1,000 mls @ 0 mls/hr IV .Q0M PRN; Protocol PRN Reason: Hypoglycemia Protocol Insulin Human Regular (Humulin R Low) 0 units SC ACHS CÉSAR; Protocol Last Admin: 12/05/17 12:55 Dose: Not Given Lidocaine (Lidoderm) 1 ea TD DAILY [facility]AR Last Admin: 12/05/17 09:08 Dose: 1 ea Lorazepam (Ativan) 0.5 mg PO AMHS CÉSAR; Protocol Last Admin: 12/05/17 09:11 Dose: 0.5 mg Lorazepam (Ativan) 0.5 mg PO Q6H PRN; Protocol PRN Reason: Anxiety Last Admin: 12/04/17 16:10 Dose: 0.5 mg Magnesium Hydroxide (Milk Of Magnesia) 30 ml PO DAILY PRN PRN Reason: Constipation Oxymetazoline HCl (Afrin 0.05%) 0 ml NS Q12H PRN PRN Reason: Nasal congestion Last Admin: 12/04/17 09:33 Dose: 2 spr Pantoprazole Sodium (Protonix Ec Tab) 20 mg PO 0600 CÉSAR Last Admin: 12/05/17 06:50 Dose: 20 mg Sodium Chloride ([place] Nasal [place]) 0 ml NS Q4H PRN PRN Reason: Nasal congestion Venlafaxine HCl (Effexor Xr) 150 mg PO DAILY [facility] Last Admin: 12/05/17 09:07 Dose: 150 mg Zaleplon (Sonata) 10 mg PO HS PRN PRN Reason: Insomnia Last Admin: 12/04/17 21:36 Dose: 10 mg - Labs Labs: 12/03/17 10:45 12/03/17 10:45 Attending/Attestation - Attestation I have personally seen and examined this patient.: Yes I have fully participated in the care of the patient.: Yes I have reviewed all pertinent clinical information, including history, physical exam and plan: Yes Notes (Text): 12/05/17 13:26 Attending note; Patient seen and examined with resident in psychiatric floor. Patient had episodes of hypoglycemia yesterday. It resolved with juice and diet. Denies any symptoms. Denies any headache, dizziness. Denies any nausea, vomiting. Tolerating diet well. Ambulating in the hallway. Complaining of chronic neck pain. On Lidoderm patch. Patient is a 42 year old male with PMH of DM2, cerebral aneurysm, HLD, GERD, hemorrhoids, anxiety and depression who was transferred from [facility] after expressed thoughts of suicide at his PMD office. His is admitted to behavior unit, consulted for medical management. Patient had hypoglycemic episode with BG 34. Hypoglycemia: resolved.Currently blood sugars normal. Metformin and glyburide stopped. Monitor fingersticks closely. Dietary education given. Hemoglobin A1c 6.2. Diabetic nurse education evaluation ordered. Advised to check fingersticks at home. Chronic neck pain; continue Lidoderm patch. Stretching exercises. Continue physical therapy. Seen by neurologist. Advised to follow-up with PMD upon discharge.
[2017-12-03] MEDS: Insulin Reg-LOW-Coverage SC SCH ×4 (07:30→21:50)
[2017-12-03] MEDS: Lidocaine 5% Patch TD SCH (10:25)
[2017-12-03] MEDS: Oxymetazoline 0.05% Nasal Spray (30 ml) NS PRN ×2 (10:34→22:03)
[2017-12-03 11:05] LABS: BASO # 0.01 K/mm3 (0.0-2.0); BASO % 0.1 % (0.0-3.0); EOS % 0.3 % (1.5-5.0); GRAN # 6.83 (1.4-6.5); GRAN % 56.2 % (50.0-68.0); HEMOGLOBIN 13.7 g/dL (14.0-18.0); LYMPH # 4.4 (1.2-3.4); LYMPH % 36.1 % (22.0-35.0); MEAN CELL VOLUME 83.1 fl (80.0-105.0); MEAN CORPUSCULAR HEMOGLOBIN 28.2 pg (25.0-35.0); MEAN CORPUSCULAR HGB CONC 33.9 g/dl (31.0-37.0); MEAN PLATELET VOLUME 9.4 fl (7.0-11.0); MONO # 0.9 (0.1-0.6); MONO % 7.3 % (1.0-6.0); RBC 4.86 10^6/uL (3.5-6.1); RED CELL DISTRIBUTION WIDTH 15.1 % (11.5-14.5); WHITE BLOOD COUNT 12.2 10^3/ul (4.5-11.0)
[2017-12-03 11:30] LABS: ALB/GLOB RATIO 0.9 (1.1-1.8); ALBUMIN 4.6 g/dL (3.0-4.8); ALT/SGPT 45 U/L (7-56); AST/SGOT 32 U/L (17-59); BLOOD UREA NITROGEN 11 mg/dL (7-21); CALCIUM 9.9 mg/dL (8.4-10.5); GFR NON-AFRICAN AMERICAN > 60
--- NOTE | 2017-12-03 16:51 | PCM.PYCHPN ---
Psychiatric Progress Note - Psychiatric Progress Note Patient seen today, length of contact: 30 minutes Patient Chief Complaint: "I feel okay" Problems Identified/Issues Discussed: Suicide/ homicide prevention, past psychiatric h/o, current psychiatric symptoms, medical problems, risk/benefits and alternatives of medications, medications compliance, coping strategies, substance abuse h/o, relapse prevention, importance of follow up with psychiatrist and therapist, discharge plan. Medical Problems: diabetes mellitus type 2, cerebral aneurysm, hyperlipidemia, GERD, hemorrhoids, see admission note for more detailed information Diagnostic Results: 12/01/17 11:00 12/01/17 11:00 Lab Results 12/02/17 14:40: POC Glucose (mg/dL) 73 12/02/17 12:29: POC Glucose (mg/dL) 68 12/02/17 11:46: POC Glucose (mg/dL) 34 L* 12/02/17 07:35: POC Glucose (mg/dL) 108 12/01/17 21:33: POC Glucose (mg/dL) 128 H 12/01/17 16:21: POC Glucose (mg/dL) 88 12/01/17 11:38: POC Glucose (mg/dL) 105 12/01/17 11:00: Sodium 139, Potassium 4.3, Chloride 104, Carbon Dioxide 24, Anion Gap 15, BUN 7, Creatinine 0.8, Est GFR ( Amer) > 60, Est GFR (Non- Af Amer) > 60, Random Glucose 108, Calcium 9.4 12/01/17 11:00: WBC 9.7, RBC 4.81, Hgb 13.7 L, Hct 40.1 L, MCV 83.4, MCH 28.5, MCHC 34.2, RDW 15.0 H, Plt Count 330, MPV 10.2, Gran % 49.7 L, Lymph % (Auto) 44.8 H, [place] % (Auto) 4.9, Eos % (Auto) 0.5 L, Baso % (Auto) 0.1, Gran # 4.83, Lymph # (Auto) 4.4 H, [place] # (Auto) 0.5, Eos # (Auto) 0.1, Baso # (Auto) 0.01 12/01/17 07:00: Triglycerides 168 H, Cholesterol 146, LDL Cholesterol Direct 75, HDL Cholesterol 31 12/01/17 07:00: TSH 3rd Generation 1.39 12/01/17 07:00: Fasting Glucose 110 12/01/17 07:00: RPR Nonreactive 11/30/17 17:54: POC Glucose (mg/dL) 113 H Vital Signs Temp Pulse Resp BP Pulse Ox 12/02/17 15:49 86 133/88 12/02/17 07:00 97.8 F 62 20 96/62 L 12/02/17 06:50 97.8 F 62 20 96/62 L 12/01/17 16:30 59 L 101/61 12/01/17 07:27 97.8 F 53 L 20 122/80 11/30/17 23:06 19 11/30/17 18:15 98.4 F 63 18 135/87 97 11/30/17 17:38 98.4 F 63 18 135/87 97 11/30/17 17:37 98.4 F 63 18 135/87 97 DSM 5 Symptoms Update: Patient is a 42 yo male with a history of depression and anxiety, no prior psychiatric admissions, no history of SA, compliant with Prozac prescribed by his primary care doctor who was transferred from [facility] at [place] after being sent to their ER by his primary care doctor for expressing suicidal thoughts during their appointment on 11/29/17. Patient has a long history of depression which has been treated mainly by his primary care physicians. He has been taking Prozac since 2011. This medication hasn't been as beneficial in recent months and these symptoms of depression worsened considerably after patient learned that his has been cheating on him for the past month. Patient found out about her affair approximately 1-2 weeks ago. During this time he tripled his dose of Prozac which also worsened his anxiety. Sleep has been very poor and patient admits to having thoughts of never waking up from sleep. He denies that he was ever actively suicidal. Patient has multiple stressors including financial, work and family. Learning about his 's affair was very painful for him and even more painful, she doesn't appear remorseful or want a reconciliation. Their future is still unclear and apparently his family do not know that patient is hospitalized. Patient was seen at the treatment team meeting, patient presented with acceptable personal hygiene, thought process seems to be circumstantial and overinclusive, pt reported that he feels "fine, I want to get better...", atient reported that he tolerates medications well, no side effects observed or reported, aims 0, no EPS. Patient was seen by medical team as well as neurology team. Patient said that he is (for family therapy, patient reported that he wants to save his marriage, but he is going to be fine regardless of the outcome of his marriage. pt started to go to the groups, visible in the unit. as per self patient visible in the unit, started to go to groups. Impression: rule out major depressive disorder Rule out adjustment disorder with depressed and anxious mood Medication Change: Yes (Prozac discontinued, Effexor started) Medical Record Reviewed: Yes Consults ordered or reviewed: atient was seen by medical team, consult appreciated. patient was seen by neurology team, consult appreciated. MRI and MRA was recommended Will follow-up on the results Mental Status Examination - Cognitive Function Orientation: Person, Place, Situation Memory: Intact Attention: Poor Concentration: Poor Association: WNL Fund of Knowledge: WNL - Mood Mood: Depressed - Affect Affect: Constricted - Formal Thought Process Formal Thought Process: No Impairment - Suicidal Ideation Suicidal Ideation: No - Homicidal Ideation Homicidal Ideation: No Goal/Treatment Plan - Goal/Treatment Plan Need for Continued Stay: Remain at risks for inpatient hospitalization, Severe depression anxiety, Discharge may exacerbated symptoms, Severe functional impairment Progress Toward Problem(s) and Goals/Treatment Plan: Milieu/structure/supportive therapy Medical consult appreciated, see medical team note for more detailed info SW consultation for discharge plan and social issues Med management Prozac was discontinued Effexor started 75 mg by mouth daily for depression and anxiety Sonata for insomnia Flexeril was started by medical team Neurology consultation appreciated Ativan for anxiety Family involvement Follow up on labs Will monitor closely Pt was educated about risk/benefits and alternatives of medications, coping strategies (safety plan, suicide prevention), relapse prevention, importance of follow up with psychiatrist and therapist, stay away from drugs/alcohol/smoking Estimated Date of D/C: 12/09/17
[2017-12-04] MEDS: Pantoprazole 20 mg EC Tab PO SCH (06:20)
--- NOTE | 2017-12-04 06:20 | CP.PCM.PN ---
<Blas Wells - Last Filed: 12/04/17 15:58> Subjective - Date & Time of Evaluation Date of Evaluation: 12/04/17 Time of Evaluation: 08:45 - Subjective Subjective: Blas Wells DO PGY-1, Internal Medicine Resident. Hospitalist Progress Note Patient seen and examined at bedside. Patient is resting in bed, awake and oriented. He did not have any complaints. Yesterday his BG was 34 on fingerstick when he felt weakness and diaphoresis and dizziness. Patient stated that he have has hypoglycemic episodes since childhood. Patient denied palpitations, CP, N/V/D Objective - Vital Signs/Intake and Output Vital Signs (last 24 hours): Temp Pulse Resp BP Pulse Ox 97.9 F 59 L 18 96/61 L 97 12/03/17 07:23 12/03/17 16:30 12/03/17 07:23 12/03/17 16:30 11/30/17 18:15 - Medications Medications: Current Medications Acetaminophen (Tylenol 325mg Tab) 650 mg PO Q6H PRN PRN Reason: Pain, Mild (1-3) Last Admin: 12/03/17 22:01 Dose: 650 mg Al Hydrox/Mg Hydrox/Simethicone (Maalox Plus 30 Ml) 30 ml PO DAILY PRN PRN Reason: Dyspepsia Cyclobenzaprine HCl (Flexeril) 5 mg PO TID [facility] Last Admin: 12/03/17 17:16 Dose: 5 mg Dextrose (Dextrose 50% Inj) 0 ml IV STAT PRN; Protocol PRN Reason: Hypoglycemia Protocol Gabapentin (Neurontin) 800 mg PO HS CÉSAR; Protocol Last Admin: 12/03/17 21:56 Dose: 800 mg Hydrocortisone (Anusol-Hc) 0 gm [place] BID PRN PRN Reason: Hemorrhoids Dextrose (Dextrose 5% In Water 1000 Ml) 1,000 mls @ 0 mls/hr IV .Q0M PRN; Protocol PRN Reason: Hypoglycemia Protocol Insulin Human Regular (Humulin R Low) 0 units SC ACHS CÉ[facility]AR; Protocol Last Admin: 12/03/17 21:50 Dose: Not Given Lidocaine (Lidoderm) 1 ea TD DAILY [facility]AR Last Admin: 12/03/17 10:25 Dose: 1 ea Lorazepam (Ativan) 0.5 mg PO [facility]; Protocol Last Admin: 12/03/17 21:56 Dose: 0.5 mg Lorazepam (Ativan) 0.5 mg PO Q6H PRN; Protocol PRN Reason: Anxiety Magnesium Hydroxide (Milk Of Magnesia) 30 ml PO DAILY PRN PRN Reason: Constipation Oxymetazoline HCl (Afrin 0.05%) 0 ml NS Q12H PRN PRN Reason: Nasal congestion Last Admin: 12/03/17 22:03 Dose: 2 spr Pantoprazole Sodium (Protonix Ec Tab) 20 mg PO 0600 CÉSAR Last Admin: 12/03/17 06:53 Dose: 20 mg Sodium Chloride ([place] Nasal [place]) 0 ml NS Q4H PRN PRN Reason: Nasal congestion Venlafaxine HCl (Effexor) 75 mg PO DAILY CÉSAR Zaleplon (Sonata) 10 mg PO HS PRN PRN Reason: Insomnia Last Admin: 12/03/17 21:56 Dose: 10 mg - Labs Labs: 12/03/17 10:45 12/03/17 10:45 - Additional Findings Additional findings: - Constitutional Appears: Well, No Acute Distress - Head Exam Head Exam: ATRAUMATIC, NORMAL INSPECTION, NORMOCEPHALIC - Eye Exam Eye Exam: Normal appearance, PERRL Pupil Exam: NORMAL ACCOMODATION - ENT Exam ENT Exam: Mucous Membranes Moist, Normal Exam - Neck Exam Neck Exam: Normal Inspection Additional comments: paravertebral neck muscle tenderness to palpate - Respiratory Exam Respiratory Exam: Clear to Ausculation Bilateral, NORMAL BREATHING PATTERN - Cardiovascular Exam Cardiovascular Exam: REGULAR RHYTHM, +S1, +S2. absent: Murmur - GI/Abdominal Exam GI & Abdominal Exam: Soft, Normal Bowel Sounds. absent: Tenderness - Extremities Exam Extremities Exam: Full ROM, Normal Capillary Refill, Normal Inspection. absent: Joint Swelling, Pedal Edema - Back Exam Back Exam: NORMAL INSPECTION - Neurological Exam Neurological Exam: Alert, Awake, CN II-XII Intact, Normal Gait, Oriented x3 - Psychiatric Exam Psychiatric exam: Depressed - Skin Skin Exam: Dry, Intact, Normal Color, Warm Assessment and Plan - Assessment and Plan (Free Text) Assessment: 42 yo male with a PMH DM2, cerebral aneurysm, HLD, GERD, hemorrhoids, anxiety and depression who was transferred from [facility] after expressed thoughts of suicide at his PMD office. His is admitted to behavior unit, consulted for medical management. Patient had hypoglycemic episode with BG 34 Plan: DM2: discontinue home med metformin, glyperide s/p one episode of hypoglycemia, BG 34. now he is clinically stable BG is in normal range A1C 6.2 ISS-low accuchecks H/O cerebral aneurysm As per neuro consult: head MRI, cervical MRI ordered Hemorroids: started anusol GERD: started pantoprazole d/c ibuprofen. use tylenol instead Chronic neck pain started lidoderm patch continue flexeril, gabapentin worm compressions as needed avoid ibuprofen PT: not candidate for skilled rehab. d/c home with outpatient PT Anxiety/ depression as per psych management regular diet Case reviewed and plan discussed with Dr Ennis <Chuckie Ennis - Last Filed: 12/05/17 13:34> Objective - Vital Signs/Intake and Output Vital Signs (last 24 hours): Temp Pulse Resp BP Pulse Ox 97.7 F 53 L 20 117/54 L 97 12/05/17 07:20 12/05/17 07:20 12/05/17 07:20 12/05/17 07:20 11/30/17 18:15 - Medications Medications: Current Medications Acetaminophen (Tylenol 325mg Tab) 650 mg PO Q6H PRN PRN Reason: Pain, Mild (1-3) Last Admin: 12/05/17 09:09 Dose: 650 mg Al Hydrox/Mg Hydrox/Simethicone (Maalox Plus 30 Ml) 30 ml PO DAILY PRN PRN Reason: Dyspepsia Cyclobenzaprine HCl (Flexeril) 5 mg PO TID [facility] Last Admin: 12/05/17 12:59 Dose: 5 mg Dextrose (Dextrose 50% Inj) 0 ml IV STAT PRN; Protocol PRN Reason: Hypoglycemia Protocol Docusate Sodium (Colace) 100 mg PO BID [facility] Last Admin: 12/05/17 09:07 Dose: 100 mg Gabapentin (Neurontin) 1,200 mg PO HS [facility]; Protocol Last Admin: 12/04/17 21:35 Dose: 1,200 mg Hydrocortisone (Anusol-Hc) 0 gm [place] BID PRN PRN Reason: Hemorrhoids Dextrose (Dextrose 5% In Water 1000 Ml) 1,000 mls @ 0 mls/hr IV .Q0M PRN; Protocol PRN Reason: Hypoglycemia Protocol Insulin Human Regular (Humulin R Low) 0 units SC ACHS [facility]; Protocol Last Admin: 12/05/17 12:55 Dose: Not Given Lidocaine (Lidoderm) 1 ea TD DAILY [facility]AR Last Admin: 12/05/17 09:08 Dose: 1 ea Lorazepam (Ativan) 0.5 mg PO AMHS CÉSAR; Protocol Last Admin: 12/05/17 09:11 Dose: 0.5 mg Lorazepam (Ativan) 0.5 mg PO Q6H PRN; Protocol PRN Reason: Anxiety Last Admin: 12/04/17 16:10 Dose: 0.5 mg Magnesium Hydroxide (Milk Of Magnesia) 30 ml PO DAILY PRN PRN Reason: Constipation Oxymetazoline HCl (Afrin 0.05%) 0 ml NS Q12H PRN PRN Reason: Nasal congestion Last Admin: 12/04/17 09:33 Dose: 2 spr Pantoprazole Sodium (Protonix Ec Tab) 20 mg PO 0600 [facility] Last Admin: 12/05/17 06:50 Dose: 20 mg Sodium Chloride ([place] Nasal [place]) 0 ml NS Q4H PRN PRN Reason: Nasal congestion Venlafaxine HCl (Effexor Xr) 150 mg PO DAILY [facility] Last Admin: 12/05/17 09:07 Dose: 150 mg Zaleplon (Sonata) 10 mg PO HS PRN PRN Reason: Insomnia Last Admin: 12/04/17 21:36 Dose: 10 mg - Labs Labs: 12/03/17 10:45 12/03/17 10:45 Attending/Attestation - Attestation I have personally seen and examined this patient.: Yes I have fully participated in the care of the patient.: Yes I have reviewed all pertinent clinical information, including history, physical exam and plan: Yes Notes (Text): 12/05/17 13:31 Attending note; Patient seen and examined with resident in psychiatric floor. Denies any complaints. Currently getting group therapy. Patient is a 42 year old male with PMH of DM2, cerebral aneurysm, HLD, GERD, hemorrhoids, anxiety and depression who was transferred from [facility] after ex pressed thoughts of suicide at his PMD office. His is admitted to behavior unit, consulted for medical management. Hypoglycemia: resolved.Currently blood sugars normal. Metformin and glyburide stopped. no need for oral hypoglycemic therapy. Dietary education given. Hemoglobin A1c 6.2. Diabetic nurse education evaluation ordered. Advised to check fingersticks at home. Chronic neck pain; continue Lidoderm patch. Stretching exercises. Continue physical therapy. Seen by neurologist. MRA is normal. MRI of the cervical spine showed disc protrusion at c6. Patient is strongly advised to avoid NSAIDs. Continue Tylenol when necessary. Advised to avoid opiates. Patient is medically stable. Please reconsult as needed. Advised to follow-up with PMD upon discharge. 12/05/17 13:33 12/05/17 13:33
[2017-12-04 07:29] VITALS: RESP 20
[2017-12-04] MEDS: Oxymetazoline 0.05% Nasal Spray (30 ml) NS PRN (09:33)
[2017-12-04] MEDS: Lidocaine 5% Patch TD SCH (09:34)
[2017-12-04] MEDS: Insulin Reg-LOW-Coverage SC SCH ×4 (11:21→22:44)
--- NOTE | 2017-12-04 17:02 | PCM.PYCHPN ---
Psychiatric Progress Note - Psychiatric Progress Note Patient seen today, length of contact: 30 minutes Patient Chief Complaint: "I feel okay" Problems Identified/Issues Discussed: Suicide/ homicide prevention, past psychiatric h/o, current psychiatric symptoms, medical problems, risk/benefits and alternatives of medications, medications compliance, coping strategies, substance abuse h/o, relapse prevention, importance of follow up with psychiatrist and therapist, discharge plan. Medical Problems: diabetes mellitus type 2, cerebral aneurysm, hyperlipidemia, GERD, hemorrhoids, see admission note for more detailed information Diagnostic Results: 12/01/17 11:00 12/01/17 11:00 Lab Results 12/02/17 14:40: POC Glucose (mg/dL) 73 12/02/17 12:29: POC Glucose (mg/dL) 68 12/02/17 11:46: POC Glucose (mg/dL) 34 L* 12/02/17 07:35: POC Glucose (mg/dL) 108 12/01/17 21:33: POC Glucose (mg/dL) 128 H 12/01/17 16:21: POC Glucose (mg/dL) 88 12/01/17 11:38: POC Glucose (mg/dL) 105 12/01/17 11:00: Sodium 139, Potassium 4.3, Chloride 104, Carbon Dioxide 24, Anion Gap 15, BUN 7, Creatinine 0.8, Est GFR ( Amer) > 60, Est GFR (Non- Af Amer) > 60, Random Glucose 108, Calcium 9.4 12/01/17 11:00: WBC 9.7, RBC 4.81, Hgb 13.7 L, Hct 40.1 L, MCV 83.4, MCH 28.5, MCHC 34.2, RDW 15.0 H, Plt Count 330, MPV 10.2, Gran % 49.7 L, Lymph % (Auto) 44.8 H, [place] % (Auto) 4.9, Eos % (Auto) 0.5 L, Baso % (Auto) 0.1, Gran # 4.83, Lymph # (Auto) 4.4 H, [place] # (Auto) 0.5, Eos # (Auto) 0.1, Baso # (Auto) 0.01 12/01/17 07:00: Triglycerides 168 H, Cholesterol 146, LDL Cholesterol Direct 75, HDL Cholesterol 31 12/01/17 07:00: TSH 3rd Generation 1.39 12/01/17 07:00: Fasting Glucose 110 12/01/17 07:00: RPR Nonreactive 11/30/17 17:54: POC Glucose (mg/dL) 113 H Vital Signs Temp Pulse Resp BP Pulse Ox 12/02/17 15:49 86 133/88 12/02/17 07:00 97.8 F 62 20 96/62 L 12/02/17 06:50 97.8 F 62 20 96/62 L 12/01/17 16:30 59 L 101/61 12/01/17 07:27 97.8 F 53 L 20 122/80 11/30/17 23:06 19 11/30/17 18:15 98.4 F 63 18 135/87 97 11/30/17 17:38 98.4 F 63 18 135/87 97 11/30/17 17:37 98.4 F 63 18 135/87 97 DSM 5 Symptoms Update: Patient is a 42 yo male with a history of depression and anxiety, no prior psychiatric admissions, no history of SA, compliant with Prozac prescribed by his primary care doctor who was transferred from [facility] at [place] after being sent to their ER by his primary care doctor for expressing suicidal thoughts during their appointment on 11/29/17. Patient has a long history of depression which has been treated mainly by his primary care physicians. He has been taking Prozac since 2011. This medication hasn't been as beneficial in recent months and these symptoms of depression worsened considerably after patient learned that his has been cheating on him for the past month. Patient found out about her affair approximately 1-2 weeks ago. During this time he tripled his dose of Prozac which also worsened his anxiety. Sleep has been very poor and patient admits to having thoughts of never waking up from sleep. He denies that he was ever actively suicidal. Patient has multiple stressors including financial, work and family. Learning about his 's affair was very painful for him and even more painful, she doesn't appear remorseful or want a reconciliation. Their future is still unclear and apparently his family do not know that patient is hospitalized. Patient was seen so nursing station, patient presented relatively well, patient is anticipating MRI of the brain as well as neck area, patient was seen by neurology team. Thought process seems to be circumstantial and overinclusive, pt reported that he feels "fine, I want to get better...", patient reported that he tolerates medications well, no side effects observed or reported, aims 0, no EPS. pt started to go to the groups, visible in the unit. as per self patient visible in the unit, started to go to groups. Impression: rule out major depressive disorder Rule out adjustment disorder with depressed and anxious mood Medication Change: Yes (Prozac discontinued, Effexor started) Medical Record Reviewed: Yes Mental Status Examination - Cognitive Function Orientation: Person, Place, Situation Memory: Intact Attention: Poor Concentration: Poor Association: WNL Fund of Knowledge: WNL - Mood Mood: Depressed - Affect Affect: Constricted - Formal Thought Process Formal Thought Process: No Impairment - Suicidal Ideation Suicidal Ideation: No - Homicidal Ideation Homicidal Ideation: No Goal/Treatment Plan - Goal/Treatment Plan Need for Continued Stay: Remain at risks for inpatient hospitalization, Severe depression anxiety, Discharge may exacerbated symptoms, Severe functional impairment Progress Toward Problem(s) and Goals/Treatment Plan: Milieu/structure/supportive therapy Medical consult appreciated, see medical team note for more detailed info SW consultation for discharge plan and social issues Med management Prozac was discontinued Effexor started 150 mg by mouth daily for depression and anxiety Sonata for insomnia Colace for constipation Flexeril was started by medical team Neurology consultation appreciated [facility] Family involvement Follow up on labs Will monitor closely Pt was educated about risk/benefits and alternatives of medications, coping stra tegies (safety plan, suicide prevention), relapse prevention, importance of follow up with psychiatrist and therapist, stay away from drugs/alcohol/smoking Estimated Date of D/C: 12/09/17
[2017-12-04] MEDS ORDERED: Gadodiamide 287 MG/ML VIAL (20ML) IV ONE (17:14)
[2017-12-05] MEDS: Pantoprazole 20 mg EC Tab PO SCH (06:50)
[2017-12-05] MEDS: Insulin Reg-LOW-Coverage SC SCH ×4 (09:03→22:49)
[2017-12-05] MEDS: Venlafaxine 75 mg ER Cap PO SCH (09:07)
[2017-12-05] MEDS: Lidocaine 5% Patch TD SCH (09:08)
--- NOTE | 2017-12-05 13:14 | MRI ---
Date of service: 12/04/2017 PROCEDURE: MR CERVICAL SPINE WITHOUT CONTRAST HISTORY: headache, neck pain COMPARISON: None available. TECHNIQUE: Multiecho multiplanar sequences were performed through the cervical spine without the use of intravenous contrast. FINDINGS: Normal lordotic curvature. Craniocervical junction unremarkable. Vertebral body heights preserved. No marrow signal abnormality. Normal cervical cord. No paraspinal abnormality. C2-C3: No disc herniation, spinal canal stenosis or neural foraminal narrowing. C3-C4: No disc herniation, spinal canal stenosis or neural foraminal narrowing. Mild disc degeneration C4-C5: No disc herniation, spinal canal stenosis or neural foraminal narrowing. Mild disc degeneration C5-C6: Broad-based left sided disc protrusion with flattening of the left side of the cord C6-C7: No disc herniation, spinal canal stenosis or neural foraminal narrowing. C7-T1: No disc herniation, spinal canal stenosis or neural foraminal narrowing. OTHER FINDINGS: None. IMPRESSION: Broad-based left paracentral disc protrusion at C5-6 with flattening of the left side of the cord
--- NOTE | 2017-12-05 13:15 | MRI ---
Date of service: 12/04/2017 PROCEDURE: Magnetic Resonance Angiography Brain with and without contrast HISTORY: hx of cerebral aneurysm COMPARISON: None available. TECHNIQUE: 3D time of flight MR angiography of the intracranial arteries was performed. Rotating maximum intensity projection images were generated. 20 cc of Omniscan FINDINGS: INTERNAL CAROTID ARTERIES: Unremarkable. The skull base, petrous, cavernous and supraclinoid segments are bilaterally widely patient. ANTERIOR CEREBRAL ARTERIES: Unremarkable. A1 and A2 segments are widely patent. Smaller distal branches unremarkable, as visualized. MIDDLE CEREBRAL ARTERIES: Unremarkable. M1 and M2 segments are widely patent. Perisylvian branches grossly symmetric. POSTERIOR CIRCULATION: Basilar Artery: Unremarkable. Distal Vertebral Arteries: Unremarkable. Posterior Cerebral Arteries: Unremarkable. Posterior Inferior Cerebellar Arteries: Unremarkable. ANEURYSM/ VASCULAR MALFORMATIONS: None. OTHER FINDINGS: None. IMPRESSION: Unremarkable MR angiography of the brain.
[2017-12-05] MEDS: Oxymetazoline 0.05% Nasal Spray (30 ml) NS PRN (15:20)
--- NOTE | 2017-12-05 16:48 | PCM.PYCHPN ---
Psychiatric Progress Note - Psychiatric Progress Note Patient seen today, length of contact: 30 minutes Patient Chief Complaint: "I opened my eyes n many things at this admission, all I know that I need to be the one who is taking care of myself" Problems Identified/Issues Discussed: Suicide/ homicide prevention, past psychiatric h/o, current psychiatric symptoms, medical problems, risk/benefits and alternatives of medications, medications compliance, coping strategies, substance abuse h/o, relapse prevention, importance of follow up with psychiatrist and therapist, discharge plan. Medical Problems: diabetes mellitus type 2, cerebral aneurysm, hyperlipidemia, GERD, hemorrhoids, see admission note for more detailed information Diagnostic Results: 12/01/17 11:00 12/01/17 11:00 Lab Results 12/02/17 14:40: POC Glucose (mg/dL) 73 12/02/17 12:29: POC Glucose (mg/dL) 68 12/02/17 11:46: POC Glucose (mg/dL) 34 L* 12/02/17 07:35: POC Glucose (mg/dL) 108 12/01/17 21:33: POC Glucose (mg/dL) 128 H 12/01/17 16:21: POC Glucose (mg/dL) 88 12/01/17 11:38: POC Glucose (mg/dL) 105 12/01/17 11:00: Sodium 139, Potassium 4.3, Chloride 104, Carbon Dioxide 24, Anion Gap 15, BUN 7, Creatinine 0.8, Est GFR ( Amer) > 60, Est GFR (Non- Af Amer) > 60, Random Glucose 108, Calcium 9.4 12/01/17 11:00: WBC 9.7, RBC 4.81, Hgb 13.7 L, Hct 40.1 L, MCV 83.4, MCH 28.5, MCHC 34.2, RDW 15.0 H, Plt Count 330, MPV 10.2, Gran % 49.7 L, Lymph % (Auto) 44.8 H, [place] % (Auto) 4.9, Eos % (Auto) 0.5 L, Baso % (Auto) 0.1, Gran # 4.83, Lymph # (Auto) 4.4 H, [place] # (Auto) 0.5, Eos # (Auto) 0.1, Baso # (Auto) 0.01 12/01/17 07:00: Triglycerides 168 H, Cholesterol 146, LDL Cholesterol Direct 75, HDL Cholesterol 31 12/01/17 07:00: TSH 3rd Generation 1.39 12/01/17 07:00: Fasting Glucose 110 12/01/17 07:00: RPR Nonreactive 11/30/17 17:54: POC Glucose (mg/dL) 113 H Vital Signs Temp Pulse Resp BP Pulse Ox 12/02/17 15:49 86 133/88 12/02/17 07:00 97.8 F 62 20 96/62 L 12/02/17 06:50 97.8 F 62 20 96/62 L 12/01/17 16:30 59 L 101/61 12/01/17 07:27 97.8 F 53 L 20 122/80 11/30/17 23:06 19 11/30/17 18:15 98.4 F 63 18 135/87 97 11/30/17 17:38 98.4 F 63 18 135/87 97 11/30/17 17:37 98.4 F 63 18 135/87 97 DSM 5 Symptoms Update: Patient is a 42 yo male with a history of depression and anxiety, no prior psychiatric admissions, no history of SA, compliant with Prozac prescribed by his primary care doctor who was transferred from [facility] at [place] after being sent to their ER by his primary care doctor for expressing suicidal thoughts during their appointment on 11/29/17. Patient has a long history of depression which has been treated mainly by his primary care physicians. He has been taking Prozac since 2011. This medication hasn't been as beneficial in recent months and these symptoms of depression worsened considerably after patient learned that his has been cheating on him for the past month. Patient found out about her affair approximately 1-2 weeks ago. During this time he tripled his dose of Prozac which also worsened his anxiety. Sleep has been very poor and patient admits to having thoughts of never waking up from sleep. He denies that he was ever actively suicidal. Patient has multiple stressors including financial, work and family. Learning about his 's affair was very painful for him and even more painful, she doesn't appear remorseful or want a reconciliation. Their future is still unclear and apparently his family do not know that patient is hospitalized. Patient was seen so nursing station, patient presented relatively well, patient is anticipating results of a MRI of the brain as well as neck area, patient was seen by neurology team. Thought process better organized, patient has future oriented plans, patient wants to get better, patient wants to be independent and "all I know that I have to be the one who is taking care of myself", patient was open for the option to have family sessions, patient is willing to talk to his after discharge. denied any aggressive feelings towards his were supports himself, patient adamantly denied thoughts of harming himself or others. pt started to go to the groups, visible in the unit. as per self patient visible in the unit, started to go to groups. Impression: rule out major depressive disorder Rule out adjustment disorder with depressed and anxious mood Medication Change: Yes (Effexor increased and it is extended release) Medical Record Reviewed: Yes Mental Status Examination - Cognitive Function Orientation: Person, Place, Situation Memory: Intact Attention: Poor (some improvement) Concentration: Poor (some improvement) Association: WNL Fund of Knowledge: WNL - Mood Mood: Depressed ("I feel better") - Affect Affect: Constricted (but more reactive and mood congruent) - Speech Speech: Appropriate - Formal Thought Process Formal Thought Process: No Impairment - Suicidal Ideation Suicidal Ideation: No - Homicidal Ideation Homicidal Ideation: No Goal/Treatment Plan - Goal/Treatment Plan Need for Continued Stay: Remain at risks for inpatient hospitalization, Severe depression anxiety, Discharge may exacerbated symptoms, Severe functional impairment Progress Toward Problem(s) and Goals/Treatment Plan: Milieu/structure/supportive therapy Medical consult appreciated, see medical team note for more detailed info SW consultation for discharge plan and social issues Med management Prozac was discontinued Effexor 150 mg by mouth daily for depression and anxiety Sonata for insomnia Colace for constipation Flexeril was started by medical team Neurology consultation appreciated Ativan for anxiety Family involvement Follow up on labs Will monitor closely Pt was educated about risk/benefits and alternatives of medications, coping s trategies (safety plan, suicide prevention), relapse prevention, importance of follow up with psychiatrist and therapist, stay away from drugs/alcohol/smoking will follow-up on MRI and MRA Estimated Date of D/C: 12/06/17
[2017-12-06 07:29] VITALS: BP 122/77; PULSE 78; TEMP 98.1
[2017-12-06] MEDS: Pantoprazole 20 mg EC Tab PO SCH (07:38)
[2017-12-06] MEDS: Insulin Reg-LOW-Coverage SC SCH ×2 (08:18→12:45)
[2017-12-06] MEDS: Lidocaine 5% Patch TD SCH (09:25)
[2017-12-06] MEDS: Venlafaxine 75 mg ER Cap PO SCH (09:25)
[2017-12-06] MEDS ORDERED: Influenza Vaccine 60 mcg/0.5 mL SYR (4YR UP) IM ONE (12:27)
--- NOTE | 2017-12-06 13:46 | CP.PCM.PN ---
<Nikki Chance - Last Filed: 12/06/17 15:41> Subjective - Date & Time of Evaluation Date of Evaluation: 12/06/17 Time of Evaluation: 13:42 - Subjective Subjective: Nikki Chance PGY2, Neurology Progress Note for Dr Keys: Patient seen and examined at bedside. No acute events overnight. Patient reports that his headache and neck pain have mildly improved. Denies syncope, nausea, vomiting, fevers, chills. Objective - Vital Signs/Intake and Output Vital Signs (last 24 hours): Temp Pulse Resp BP Pulse Ox 98.1 F 78 20 122/77 97 12/06/17 07:28 12/06/17 07:28 12/06/17 07:28 12/06/17 07:28 11/30/17 18:15 - Medications Medications: Current Medications Acetaminophen (Tylenol 325mg Tab) 650 mg PO Q6H PRN PRN Reason: Pain, Mild (1-3) Last Admin: 12/05/17 22:03 Dose: 650 mg Al Hydrox/Mg Hydrox/Simethicone (Maalox Plus 30 Ml) 30 ml PO DAILY PRN PRN Reason: Dyspepsia Cyclobenzaprine HCl (Flexeril) 5 mg PO TID [facility] Last Admin: 12/06/17 12:48 Dose: 5 mg Dextrose (Dextrose 50% Inj) 0 ml IV STAT PRN; Protocol PRN Reason: Hypoglycemia Protocol Docusate Sodium (Colace) 100 mg PO BID [facility] Last Admin: 12/06/17 09:25 Dose: 100 mg Gabapentin (Neurontin) 1,200 mg PO HS [facility]; Protocol Last Admin: 12/05/17 22:49 Dose: 1,200 mg Hydrocortisone (Anusol-Hc) 0 gm NE BID PRN PRN Reason: Hemorrhoids Dextrose (Dextrose 5% In Water 1000 Ml) 1,000 mls @ 0 mls/hr IV .Q0M PRN; Protocol PRN Reason: Hypoglycemia Protocol Insulin Human Regular (Humulin R Low) 0 units SC [facility]; Protocol Last Admin: 12/06/17 12:45 Dose: Not Given Lidocaine (Lidoderm) 1 ea TD DAILY [facility] Last Admin: 12/06/17 09:25 Dose: 1 ea Lorazepam (Ativan) 0.5 mg PO [facility]; Protocol Last Admin: 12/06/17 09:25 Dose: 0.5 mg Lorazepam (Ativan) 0.5 mg PO Q6H PRN; Protocol PRN Reason: Anxiety Last Admin: 12/04/17 16:10 Dose: 0.5 mg Magnesium Hydroxide (Milk Of Magnesia) 30 ml PO DAILY PRN PRN Reason: Constipation Oxymetazoline HCl (Afrin 0.05%) 0 ml NS Q12H PRN PRN Reason: Nasal congestion Last Admin: 12/05/17 15:20 Dose: 2 spr Pantoprazole Sodium (Protonix Ec Tab) 20 mg PO 0600 [facility] Last Admin: 12/06/17 07:38 Dose: 20 mg Sodium Chloride ([place] Nasal [place]) 0 ml NS Q4H PRN PRN Reason: Nasal congestion Last Admin: 12/05/17 22:01 Dose: 2 sprays Venlafaxine HCl (Effexor Xr) 150 mg PO DAILY [facility] Last Admin: 12/06/17 09:25 Dose: 150 mg [place]plon (Sonata) 10 mg PO HS PRN PRN Reason: Insomnia Last Admin: 12/05/17 22:01 Dose: 10 mg - Labs Labs: 12/03/17 10:45 12/03/17 10:45 - Additional Findings Additional findings: - Constitutional Appears: Non-toxic, No Acute Distress - Head Exam Head Exam: ATRAUMATIC, NORMOCEPHALIC - Eye Exam Eye Exam: EOMI, PERRL. absent: Conjunctival injection, Nystagmus, Scleral icterus Pupil Exam: NORMAL ACCOMODATION, PERRL. absent: Fixed, Irregular, Miosis, Unequal - ENT Exam ENT Exam: Mucous Membranes Moist - Neck Exam Neck exam: Positive for: Full Rom - Respiratory Exam Respiratory Exam: Clear to Auscultation Bilateral, NORMAL BREATHING PATTERN. absent: Accessory Muscle Use, Rales, Rhonchi, Wheezes, Stridor - Cardiovascular Exam Cardiovascular Exam: +S1, +S2. absent: Systolic Murmur - GI/Abdominal Exam GI & Abdominal Exam: Normal Bowel Sounds, Soft. absent: Firm, Guarding, Organomegaly, Rebound, Rigid, Tenderness - Extremities Exam Extremities exam: Positive for: normal inspection. Negative for: calf tenderness, pedal edema - Back Exam Back exam: NORMAL INSPECTION - Neurological Exam Neurological exam: Alert, CN II-XII Intact, Normal Gait, Oriented x3, Reflexes Normal Additional comments: 5/5 muscle strength bilaterally in UE & LE Sensation intact bilaterally No dysmetria. Rapid alternating movements normal +Steady gait - Psychiatric Exam Psychiatric exam: Normal Affect, Normal Mood - Skin Skin Exam: Dry, Normal Color, Warm Assessment and Plan - Assessment and Plan (Free Text) Assessment: 42 M with PMH of DM2, HLD, GERD, hemorrhoids, anxiety and depression admitted to psych for depression and anxiety. neurology consulted for history of cerebral aneurysm, chronic headaches and neck pain: Chronic headache and neck pain: - c/w Flexeril 5 mg PO tid - continue Gabapentin 1200mg HS - Lidoderm patch - PT eval: home Hx of Cerebral Aneurysm: - head MRA negative - cervical MRI showed broad based left paracentral disc protrusion at C5-6 with flattening of left side of cord. Discussed results with patient. Case discussed with Dr Keys. <Eber Keys - Last Filed: 12/07/17 11:31> Objective - Vital Signs/Intake and Output Vital Signs (last 24 hours): Temp Pulse Resp BP Pulse Ox 98.1 F 78 20 122/77 97 12/06/17 07:28 12/06/17 07:28 12/06/17 07:28 12/06/17 07:28 11/30/17 18:15 - Labs Labs: 12/03/17 10:45 12/03/17 10:45 Attending/Attestation - Attestation I have personally seen and examined this patient.: Yes I have fully participated in the care of the patient.: Yes I have reviewed all pertinent clinical information, including history, physical exam and plan: Yes Notes (Text): 12/07/17 11:29 I agree with the assessment and plan. The patient may consult with neurosurgery regarding the cervical spine disc herniation, but it does not appear to be a surgical lesion. From a neurological perspective, will continue gabapentin and treat headache conservatively. The patient may follow up with neurology and neurosurgery as an outpatient.
--- NOTE | 2017-12-06 16:05 | PCM.PYCHDC ---
Mental Status Examination - Mental Status Examination Orientation: Person, Place, Situation, Time Memory: Intact Mood: Neutral Affect: Constricted (rule out reactive and mood congruent) Speech: Appropriate Attention: WNL Concentration: WNL Association: WNL Fund of Knowledge: WNL Formal Thought Process: No Impairment Description of patient's judgement and insight: Pt has improved insight into mental and medical illness, pt was compliant with medications and unit rules and regulations, pt was going to groups, was calm, cooperative, socially appropriate, no behavioral incidents, no agitation, no aggression. Psychotic Thoughts and Behaviors: Pt denied v/a/t hallucinations, denied paranoid ideations, pt does not appear to be psychotic, and thought process is goal directed. Suicidal Ideation: No Current Homicidal Ideation?: No Plan: pt adamantly denied thoughts of harming self or others denied intent or plan. Discharge Summary - Discharge Note Reason for Hospitalization: depression, possible suicidal ideation, please see Dr. Nichols note for initial evaluation Psychiatric History (includes Medical, Family, Personal Hx): history of depression and anxiety Laboratory Data: Abnormal Lab Results 12/05/17 12/05/17 12/05/17 11:55 16:24 21:10 POC Glucose (mg/dL) 78 105 141 H 12/06/17 07:22 POC Glucose (mg/dL) 103 12/03/17 10:45 12/03/17 10:45 Lab Results 12/06/17 07:22: POC Glucose (mg/dL) 103 12/05/17 21:10: POC Glucose (mg/dL) 141 H 12/05/17 16:24: POC Glucose (mg/dL) 105 12/05/17 11:55: POC Glucose (mg/dL) 78 12/05/17 07:38: POC Glucose (mg/dL) 116 H 12/04/17 21:02: POC Glucose (mg/dL) 103 12/04/17 16:27: POC Glucose (mg/dL) 118 H 12/04/17 11:25: POC Glucose (mg/dL) 77 12/04/17 07:18: POC Glucose (mg/dL) 109 12/03/17 21:13: POC Glucose (mg/dL) 158 H 12/03/17 16:13: POC Glucose (mg/dL) 89 12/03/17 11:57: POC Glucose (mg/dL) 112 H 12/03/17 10:45: Sodium 140, Potassium 4.0, Chloride 104, Carbon Dioxide 22, Anion Gap 18, BUN 11, Creatinine 0.9, Est GFR ( Amer) > 60, Est GFR (Non- Af Amer) > 60, Random Glucose 113 H, Calcium 9.9, Phosphorus 3.4, Magnesium 1.7, Total Bilirubin 0.4, AST 32, ALT 45, Alkaline Phosphatase 80, Total Protein 9.5 H, Albumin 4.6, Globulin 4.9, Albumin/Globulin Ratio 0.9 L 12/03/17 10:45: WBC 12.2 H D, RBC 4.86, Hgb 13.7 L, Hct 40.4 L, MCV 83.1, MCH 28.2, MCHC 33.9, RDW 15.1 H, Plt Count 321, MPV 9.4, Gran % 56.2, Lymph % (Auto) 36.1 H, Holt % (Auto) 7.3 H, Eos % (Auto) 0.3 L, Baso % (Auto) 0.1, Gran # 6.83 H, Lymph # (Auto) 4.4 H, Holt # (Auto) 0.9 H, Eos # (Auto) 0.0, Baso # (Auto) 0.01 12/03/17 10:45: Hemoglobin A1c 6.2 12/03/17 07:24: POC Glucose (mg/dL) 86 12/02/17 21:21: POC Glucose (mg/dL) 97 12/02/17 16:03: POC Glucose (mg/dL) 61 L 12/02/17 14:40: POC Glucose (mg/dL) 73 12/02/17 12:29: POC Glucose (mg/dL) 68 12/02/17 11:46: POC Glucose (mg/dL) 34 L* 12/02/17 07:35: POC Glucose (mg/dL) 108 12/01/17 21:33: POC Glucose (mg/dL) 128 H 12/01/17 16:21: POC Glucose (mg/dL) 88 12/01/17 11:38: POC Glucose (mg/dL) 105 12/01/17 11:00: Sodium 139, Potassium 4.3, Chloride 104, Carbon Dioxide 24, Anion Gap 15, BUN 7, Creatinine 0.8, Est GFR ( Amer) > 60, Est GFR (Non- Af Amer) > 60, Random Glucose 108, Calcium 9.4 12/01/17 11:00: WBC 9.7, RBC 4.81, Hgb 13.7 L, Hct 40.1 L, MCV 83.4, MCH 28.5, MCHC 34.2, RDW 15.0 H, Plt Count 330, MPV 10.2, Gran % 49.7 L, Lymph % (Auto) 44.8 H, Holt % (Auto) 4.9, Eos % (Auto) 0.5 L, Baso % (Auto) 0.1, Gran # 4.83, Lymph # (Auto) 4.4 H, Holt # (Auto) 0.5, Eos # (Auto) 0.1, Baso # (Auto) 0.01 12/01/17 07:00: Triglycerides 168 H, Cholesterol 146, LDL Cholesterol Direct 75, HDL Cholesterol 31 12/01/17 07:00: TSH 3rd Generation 1.39 12/01/17 07:00: Fasting Glucose 110 12/01/17 07:00: RPR Nonreactive 11/30/17 17:54: POC Glucose (mg/dL) 113 H Vital Signs Temp Pulse Resp BP Pulse Ox 12/06/17 07:28 98.1 F 78 20 122/77 12/05/17 16:30 74 108/80 12/05/17 07:20 97.7 F 53 L 20 117/54 L 12/04/17 16:00 82 111/76 12/04/17 07:27 98.0 F 51 L 20 114/80 12/03/17 16:30 59 L 96/61 L 12/03/17 07:23 97.9 F 67 18 100/63 12/02/17 15:49 86 133/88 12/02/17 07:00 97.8 F 62 20 96/62 L 12/02/17 06:50 97.8 F 62 20 96/62 L 12/01/17 16:30 59 L 101/61 12/01/17 07:27 97.8 F 53 L 20 122/80 11/30/17 23:06 19 11/30/17 18:15 98.4 F 63 18 135/87 97 11/30/17 17:38 98.4 F 63 18 135/87 97 11/30/17 17:37 98.4 F 63 18 135/87 97 head MRA negative -cervical MRI showed broad based left paracentral disc protrusion at C5-6 with flattening of left side of cord. Discussed results with patient. Consultations:: List each consultation separately and include: 1. Reason for request. 2. Findings. 3. Follow-up Consultations: atient was seen by medical team, consult appreciated. patient was seen by neurology team, consult appreciated. see notes for more detailed information Summary of Hospital Course include:: 1. Description of specific treatment plan utilized for patients during their course of treatmen. 2. Summarize the time- course for resolution of acute symptoms and/or regressed behaviors. 3. Describe issues identified and worked on during hospitalization. 4. Describe medication utilized. 5. Describe medical problems identified and treated. 6. Reassessment of suicide risk Summary of Hospital Course: patient was admitted for evaluation and stabilization of depressive symptoms and possible suicidal ideation please see Dr. Villa note for more detailed information. Over the course of this hospitalization patient was stabilized on the following medications: Prozac was discontinued due to ineffectiveness Effexor was started and slowly titrated to extended release 150 milligrams daily for depression and anxiety gabapentin was started and increased 1200 mg at the nighttime by neurology team Ativan was given as needed for anxiety 0.5 mg twice a day Flexeril was started by neurology team 5 mg 3 times a day Patient tolerated medications well, no side effects observed or reported, aims 0, no EPS. Patient was seen by medical team as well as neurology team please see notes for more detailed information Over the course of this hospitalization pt was attending groups, pt also had medication management, had therapeutic milieu. Overall pt improved significantly, pt's affect became brighter, pt was less depressed, has realistic future oriented plans patient wants to save his marriage, patient expressed interest to have family counseling, pt also does not appear to be psychotic, or anxious, pt was socially appropriate, no behavioral issues, pts insight improved as well and soon pt deemed to be ready for discharge. At the time of the discharge pt denied been depressed, denied thoughts of harming self or others, denied psychotic symptoms, and pt does not appeared to be psychotic, denied been anxious, pt is not in imminent danger to self or others, pt was provided with information about outpatient treatment [facility] on December 19, 2017 , information about follow up appointment, time and address provided to the pt, it is patient responsibility to follow up with outpatient clinic, PMD as well as specialists (see SW note for more detailed information). In case pt will need to obtain results of studies pending at discharge pt was provided with contact information of Psychiatric Inpatient unit [phone] as well as Medical Record Department [phone]. patient does not using drugs, does not drink alcohol does not smoke. pt was provided with prescriptions for all of medications (please see medication reconciliation form) Pt was educated about safety plan in case of worsening of symptoms or in case of suicidal or homicidal ideation call 911 or go to the nearest ER, also was ed ucated to take meds as prescribed and stay away from drugs, pt verbalized understanding. - Diagnosis (1) MDD (major depressive disorder) Current Visit: Yes Status: Chronic Priority: High (2) ILA (generalized anxiety disorder) Current Visit: Yes Status: Chronic Priority: High - Final Diagnosis (DSM 5) Condition upon Discharge: GOOD Disposition: HOME/ ROUTINE Follow-up Treatment Plan: Over the course of this hospitalization pt was attending groups, pt also had medication management, had therapeutic milieu. Overall pt improved significantly, pt's affect became brighter, pt was less depressed, has realistic future oriented plans patient wants to save his marriage, patient expressed interest to have family counseling, pt also does not appear to be psychotic, or anxious, pt was socially appropriate, no behavioral issues, pts insight improved as well and soon pt deemed to be ready for disc harge. At the time of the discharge pt denied been depressed, denied thoughts of harming self or others, denied psychotic symptoms, and pt does not appeared to be psychotic, denied been anxious, pt is not in imminent danger to self or others, pt was provided with information about outpatient treatment [facility] on December 19, 2017 , information about follow up appointment, time and address provided to the pt, it is patient responsibility to follow up with outpatient clinic, PMD as well as specialists (see SW note for more detailed information). In case pt will need to obtain results of studies pending at discharge pt was provided with contact information of Psychiatric Inpatient unit [phone] as well as Medical Record Department [phone]. patient does not using drugs, does not drink alcohol does not smoke. pt was provided with prescriptions for all of medications (please see medication reconciliation form) Pt was educated about safety plan in case of worsening of symptoms or in case of suicidal or homicidal ideation call 911 or go to the nearest ER, also was educated to take meds as prescribed and stay away from drugs, pt verbalized understanding. Prescriptions/Medication Reconciliation: Cyclobenzaprine [Flexeril] 5 mg PO TID #21 tab Docusate [Colace] 100 mg PO BID #14 cap Gabapentin [Neurontin] 1,200 mg PO HS #30 tab Lidocaine 5% [Lidoderm] 1 ea TD DAILY #7 patch LORazepam [Ativan] 0.5 mg PO HS #14 tab Pantoprazole [Protonix EC Tab] 20 mg PO 0600 #7 ect Venlafaxine [Effexor XR] 150 mg PO DAILY #14 cer Zaleplon [Sonata] 10 mg PO HS #14 cap - Smoking Cessation Smoking Cessation Medication prescribed: No Reason for not providing: denied smoking - Antipsychotic Medications Pt discharged on 2 or more routine antipsychotic medications: No
== END 2017-12-06 15:59 | disposition home or self-care (01) | DRG 426 ==
LOC: ED 17:37 → PSYC 17:47 → ERH 18:07 → PSYC 18:27
PROVIDERS: ADMIT Psychiatry & Neurology Psychiatry; ATTEND Psychiatry & Neurology Psychiatry
PROC: GZ3ZZZZ Medication Management (ICD-10-PCS; principal; 2017-12-02)
PROC: 3E02340 Introduction of Influenza Vaccine into Muscle, Percutaneous Approach (ICD-10-PCS; 2017-12-06)
DX: F32.9 Major depressive disorder, single episode, unspecified (principal); E11.649 Type 2 diabetes mellitus with hypoglycemia without coma; F41.1 Generalized anxiety disorder; K21.9 Gastro-esophageal reflux disease without esophagitis; E78.5 Hyperlipidemia, unspecified; Z79.84 Long term (current) use of oral hypoglycemic drugs; K64.9 Unspecified hemorrhoids; G89.29 Other chronic pain; K59.00 Constipation, unspecified; I10 Essential (primary) hypertension; F12.90 Cannabis use, unspecified, uncomplicated; M46.92 Unspecified inflammatory spondylopathy, cervical region; R45.851 Suicidal ideations; Z23 Encounter for immunization